=== PATIENT | female | born 1995 | race Caucasian/White ===

== ENCOUNTER 2020-05-26 14:24 | Emergency (ER) | payer SELFPAY ==
--- NOTE | ~2020-05-26 | XR_ITS ---
EXAMINATION: [id number]_CR DATE: 05/26/2020 14:55 INDICATION: Left upper chest injury. Pain. TECHNIQUE: A frontal view of the chest and 3 views of the left ribs were obtained. COMPARISON: None. FINDINGS: The chest demonstrates clear lungs without pneumonia, pleural effusion, or pneumothorax. Th e heart size is normal. IMPRESSION: 1. No rib fracture. Reviewed, dictated and finalized at location A. IMPRESSION: 1. No rib fracture.
[2020-05-26 14:33] VITALS: BP 122/89; PULSE 98; RESP 16; TEMP 36.8; O2SAT 100
[2020-05-26 14:44] VITALS: BP 122/89; PULSE 98; RESP 16; TEMP 36.8; O2SAT 100
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
[2020-05-26] MEDS: KETOROLAC 30 MG/ML VIAL (*BKC) IM (15:05)
== END 2020-05-26 15:25 | disposition home or self-care (01) ==
PROVIDERS: Emergency Provider Nurse Practitioner
DX: R07.89 Other chest pain (principal); F17.200 Nicotine dependence, unspecified, uncomplicated
CPT/HCPCS: 71101; 96372; 99213; G0463; J1885

== ENCOUNTER 2020-11-24 21:26 | Observation (INO) | payer BC, MEDICAID, SELFPAY ==
[2020-11-24 21:42] VITALS: BP 134/86; PULSE 113
[2020-11-24 21:46] VITALS: BP 135/71; PULSE 104
[2020-11-24 22:00] VITALS: BP 126/63; PULSE 97
[2020-11-24 22:05] LABS: Add Urine Microscopic? YES; Appearance Urine Cloudy (Clear); Bacteria Urine Trace /hpf; Bilirubin Urine Negative (Negative); Blood Urine Negative (Negative); Color Urine Yellow (Yellow); Glucose Urine UA Negative (Negative); Ketones Urine 1+ mg/dL (Negative); Leukocyte Esterase Ur 1+ LEU/UL (Negative); Mucus Urine Rare /lpf; Nitrate Urine Negative (Negative); Protein Urine 1+ mg/dL (Negative); RBC Urine 0-2 /hpf (0-2); Specific Grav Ur 1.023 (1.001-1.035); Squamous Epithelial Cell Urine Many /hpf (Few)
[2020-11-24 22:15] VITALS: BP 130/69; PULSE 93
[2020-11-24] MEDS: ONDANSETRON HCL ODT 4 MG TABLET PO (22:25)
[2020-11-24 22:35] VITALS: BMI 24.5
--- NOTE | 2020-11-24 22:35 | LDADM ---
This patient, Cedrick Jorgensen, was admitted to OB Post 115 on 11/24/20 at 21:26. Plans for labor, pain management and were discussed with patient. Patient/family oriented to hospital policies and general routines including ID bracelet, bed and alarms, visiting hours, pain management, procedures, bathroom and other care routines, personal items, smoking policy, room service/diet and guest tray routines, infant security routines, and visiting hours. Patient/Family are encouraged to report perceived risks to care and to ask questions if they do not understand what they are told or what they should do. See OBIX for further documentation.
--- NOTE | 2020-11-24 23:15 | PC.NURSE ---
2210- called Dr. Beckman- walk-in informed of pt admission. pt c/o nausea and vomiting since yesterday. not able to keep fluids/solids down. UA-sent, labs reviewed. order for ODT zofran 4 mg now and will send script to [facility] in [place] for Macrobid 100mg po BID x 7 days for UTI. pt told to f/u with her OB at [facility].
--- NOTE | 2020-11-28 11:05 | PM.OBTRLD ---
OB - Triage/Final Diagnosis Visit Information Comments/Additional reasons for admission: I have assessed the risk for this patient, Cedrick Jorgensen, and determined that she would benefit from observation care. Evaluation Laboratory results: Laboratory Tests 11/24/20 21:53 Urine Color Yellow Urine Appearance Cloudy H Urine pH 6.0 Ur Specific [place] 1.023 Urine Protein 1+ H Urine Glucose (UA) Negative Urine Ketones 1+ H Ur Blood (Man) Negative Urine Nitrate Negative Urine Bilirubin Negative Urine Urobilinogen 2.0 H Leukocyte Esterase Rfl 1+ H Urine RBC 0-2 Urine WBC 4-6 H Ur Squamous Epith Cells Many H Urine Bacteria Trace Urine Mucus Rare Final Diagnosis (1) Nausea and vomiting during : Code(s): O21.9 - Vomiting of , unspecified Status: Acute
== END 2020-11-24 23:11 | disposition home or self-care (01) ==
PROVIDERS: Admitting Provider Obstetrics & Gynecology; Visit Provider Obstetrics & Gynecology
DX: O21.9 Vomiting of pregnancy, unspecified (principal); Z3A.00 Weeks of gestation of pregnancy not specified
CPT/HCPCS: 81001; A9270; G0378; G0379

== ENCOUNTER 2021-02-10 09:37 | Observation (INO) | payer BC, MEDICAID, SELFPAY ==
[2021-02-10] VITALS (16 sets, daily range): BP systolic 101–154; BP diastolic 52–121; PULSE 67–95; BMI 23.2
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
[2021-02-10 10:56] LABS: Basophils Percent Auto 0.2 % (0.2-1.2); Eosinophils Percent Auto 0.2 % (0-4.4); Hematocrit 34.2 % (37.0-47.0); Hemoglobin 10.8 g/dL (12.0-15.0); Immature Granulocyte Absolute 0.05 K/mm3 (0.00-0.031); Immature Granulocyte Percent A 0.5 % (0-0.5); Lymphocytes Percent Auto 17.5 % (18.3-44.2); Mean Corpuscular HGB Conc 31.6 g/dl (32-36); Mean Corpuscular Hemoglobin 27.8 pg (26-34); Mean Corpuscular Volume 87.9 fl (80-100); Mean Platelet Volume 11.2 fl (7.4-10.4); Monocytes Absolute Auto 0.6 K/mm3 (0.1-0.6); Monocytes Percent Auto 6.4 % (2.6-8.5); Neutrophils Absolute Auto 7.3 K/mm3 (1.3-6.7); Neutrophils Percent Auto 75.2 % (45.5-73.1); Platelet Count Result 193 k/mm3 (150-375); Red Blood Count 3.89 M/mm3 (4.2-5.4); Red Cell Distribution Width 13.3 % (11.5-14.5); White Blood Count 9.7 K/mm3 (4.5-10.0)
[2021-02-10 11:07] LABS: Prothrombin Time 13.1 Seconds (11.1-14.7)
[2021-02-10] MEDS: LACTATED RINGERS 1,000 ML 125 ML IV CONT (11:07)
[2021-02-10 11:08] LABS: Partial Thromboplastin Time 26.6 SECONDS (22.3-36.8)
[2021-02-10] MEDS: ACETAMINOPHEN 500 MG TABLET 1000 MG PO (11:12)
[2021-02-10 11:19] LABS: Fibrinogen 152 mg/dl (215-510)
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
== END 2021-02-10 16:30 | disposition home or self-care (01) ==
PROVIDERS: Admitting Provider Obstetrics & Gynecology; Visit Provider Obstetrics & Gynecology
DX: Z04.1 Encounter for examination and observation following transport accident (principal); O26.899 Other specified pregnancy related conditions, unspecified trimester; T14.90XA Injury, unspecified, initial encounter; V89.2XXA Person injured in unspecified motor-vehicle accident, traffic, initial encounter; Z3A.00 Weeks of gestation of pregnancy not specified
CPT/HCPCS: 36415; 76815; 85025; 85384; 85460; 85610; 85730; 86850; 86900; 86901; A9270; G0378; G0379; J7120

== ENCOUNTER 2021-02-20 09:01 | Outpatient (RCR) | payer BC, MEDICAID, SELFPAY ==
[2021-02-07 14:13] VITALS: BP 126/59; PULSE 81
--- NOTE | 2021-02-07 15:05 | PC.NURSE ---
Spoke with Dr. Vasquez. Orders to discharge home.
[2021-02-15 15:30] VITALS: BP 113/69; PULSE 81
--- NOTE | ~2021-02-20 | US_ITS ---
EXAMINATION: US OB BPP wo non-stress DATE: 02/20/2021 10:15 INDICATION: Intrauterine growth restriction. Third trimester. TECHNIQUE: Real-time pelvic ultrasound was performed. COMPARISON: Ultrasound 02/15/2021 FINDINGS: There is a single living fetus in breech presentation. The placenta is anterior. heart rate is 122 beats per minute (bpm). Biophysical profile performed by the technologist: breathing (30 sec sustained breathing in 30 minutes): 2 out of 2 movement (3 gross body movements in 30 minutes): 2 out of 2 tone (one episode of brcbqxt-hhildgfci-icftylv limb movement): 2 out of 2 Amniotic fluid pocket (2 cm): 2 out of 2 Total score: 8 out of 8 IMPRESSION: 1. Single living fetus in breech presentation. 2. Biophysical profile 8 out of 8. Reviewed, dictated and finalized at location A.
--- NOTE | ~2021-02-20 | US_ITS ---
EXAMINATION: US OB BPP wo non-stress DATE: 02/15/2021 12:50 INDICATION: Intrauterine growth restriction. Third trimester. TECHNIQUE: Real-time pelvic ultrasound was performed. COMPARISON: Ultrasound 02/10/2021 FINDINGS: There is a single living fetus in breech presentation. The placenta is anterior. heart rate is 139 beats per minute (bpm). Biophysical profile performed by the technologist: breathing (30 sec sustained breathing in 30 minutes): 2 out of 2 movement (3 gross body movements in 30 minutes): 2 out of 2 tone (one episode of gnirktr-xzpywxkyi-evcjwjz limb movement): 2 out of 2 Amniotic fluid pocket (2 cm): 2 out of 2 Total score: 8 out of 8 IMPRESSION: 1. Single living fetus in breech presentation. 2. Biophysical profile 8 out of 8. Reviewed, dictated and finalized at location A.
--- NOTE | ~2021-02-20 | US_ITS ---
EXAMINATION: US OB BPP wo non-stress, US umbilical doppler DATE: 02/07/2021 14:33 INDICATION: IUGR during third trimester TECHNIQUE: Real-time pelvic ultrasound was performed. The interpreting radiologist was not present fo r the study. COMPARISON: None. FINDINGS: There is a single living fetus in breech presentation. The placenta is anterior/fundal. heart r ate is 127 beats per minute (bpm). The amniotic fluid index is 8.6 cm which is normal (normal range: 8.3 cm to 24.5 cm). Biophysical profile performed by the technologist: breathing (30 sec sustained breathing in 30 minutes): 2 out of 2 movement (3 gross body movements in 30 minutes): 2 out of 2 tone (one episode of uvzghlk-hmexkylac-wgqjtuj limb movement): 2 out of 2 Amniotic fluid pocket (2 cm): 2 out of 2 Total score: 8 out of 8 Umbilical artery pulsed Doppler demonstrates peak systolic to end-diastolic velocity ratios (S/D rati os) of 2.5 near the fetus, 2.5 in the mid cord, and 3.4 near the placenta (5th percentile = 2.1, 95th percentile = 3.5). IMPRESSION: 1. Single living fetus in breech presentation. 2. Biophysical profile 8 out of 8. 3. Normal umbilical artery Dopplers. 4. Normal amniotic fluid index. Reviewed, dictated and finalized at location B. IMPRESSION: 1. Single living fetus in breech presentation. 2. Biophysical profile 8 out of 8. 3. Normal umbilical artery Dopplers. 4. Normal amniotic fluid index.
[2021-02-20 10:23] VITALS: BP 124/76; PULSE 97
== END 2021-02-22 09:55 | disposition home or self-care (01) ==
LOC: ANHOBOP 09:01
PROVIDERS: Visit Provider Obstetrics & Gynecology
DX: O36.5930 Maternal care for other known or suspected poor fetal growth, third trimester, not applicable or unspecified (principal); Z3A.33 33 weeks gestation of pregnancy; Z3A.35 35 weeks gestation of pregnancy
CPT/HCPCS: 59025; 76819; 76820

== ENCOUNTER 2021-02-21 11:15 | Outpatient (CLI) | payer BC, MEDICAID, SELFPAY ==
[2021-02-21 12:00] LABS: Basophils Percent Auto 0.3 % (0.2-1.2); Eosinophils Percent Auto 0.2 % (0-4.4); Hematocrit 35.5 % (37.0-47.0); Immature Granulocyte Absolute 0.03 K/mm3 (0.00-0.031); Immature Granulocyte Percent A 0.3 % (0-0.5); Lymphocytes Absolute Auto 2.17 K/mm3 (0.9-3.2); Lymphocytes Percent Auto 22.1 % (18.3-44.2); Mean Corpuscular Hemoglobin 27.3 pg (26-34); Mean Corpuscular Volume 88.1 fl (80-100); Monocytes Absolute Auto 0.7 K/mm3 (0.1-0.6); Monocytes Percent Auto 7.5 % (2.6-8.5); Neutrophils Absolute Auto 6.8 K/mm3 (1.3-6.7); Neutrophils Percent Auto 69.6 % (45.5-73.1); Platelet Count Result 233 k/mm3 (150-375); Red Blood Count 4.03 M/mm3 (4.2-5.4); Red Cell Distribution Width 13.8 % (11.5-14.5); White Blood Count 9.8 K/mm3 (4.5-10.0)
[2021-02-22 09:25] LABS: Rapid Plasma Reagin Non-Reactive (NonReactive)
== END 2021-02-21 11:16 | disposition home or self-care (01) ==
LOC: ANHLAB 11:18
PROVIDERS: Visit Provider Obstetrics & Gynecology
DX: Z01.818 Encounter for other preprocedural examination (principal)
CPT/HCPCS: 36415; 85025; 86592; 86850; 86900; 86901

== ENCOUNTER 2021-02-22 08:22 | Inpatient (IN) | payer BC, MEDICAID, SELFPAY ==
[2021-02-22] VITALS (60 sets, daily range): BP systolic 109–187; BP diastolic 36–156; PULSE 65–139; RESP 12–19; TEMP 36.2–37.3; O2SAT 83–100; BMI 22.9
--- NOTE | 2021-02-22 08:42 | WPDANESEPPF ---
Anes - Initial Pre Proc Eval Procedure: Operation Date: 02/22/21 10:30 Proposed Procedures p Primary Section - Prem Pulliam MD Date/Time: 02/22/21 08:42 Surgeon: Prem Pulliam MD Pre Op Diagnosis: c/s Patient Data Age: 25 Gender: F Height: Weight: Allergies Allergy/AdvReac Type Severity Reaction Status Date / Time No Known Allergies Allergy Unknown Verified 05/26/20 14:43 Home Medications Medication Instructions Recorded Confirmed Type 1 tablet PO DAILY 02/10/21 02/20/21 History acetaminophen 1,000 mg PO Q6H PRN tablet 02/10/21 02/20/21 Rx ferrous sulfate 325 mg PO DAILY 02/20/21 02/20/21 History Patient hx anesthesia problems: none Family hx anesthesia problems: none PMFSH Past Medical History Medical History (Updated 02/12/21 @ 18:57 by Jacqueline Vasquez DO) Nausea and vomiting during No active medical problems Family History Family History Other No active medical problems Social History Social History (Updated 05/26/20 @ 14:51 by Lorraine Gordon CNP) Smoking status: Current every day smoker Tobacco type: e-cigarettes/vaping Alcohol intake: current Anes - Eval Final PreProcedure Day of Procedure 02/22/21 08:42 Patient weight: normal Heart: regular rate and rhythm Lungs: clear to auscultation and normal air movement Airway: Mallampati scale class II Neurological: alert and oriented Last oral intake: >/= 8 hours ASA classification: II Emergent: no Anesthetic plan: proceed Anesthesia type and monitoring: regional spinal and standard monitoring Informed Consent: The patient's anesthetic plan and its attendant risks and benefits were discussed with the patient/family/POA. Questions were solicited and answers provided to the satisfaction of the patient/family/POA.
[2021-02-22] MEDS: LACTATED RINGERS 250 ML 999 ML IVPB (09:10)
--- NOTE | 2021-02-22 09:35 | LDADM ---
This patient, Cedrick Jorgensen, was admitted to Labor/Delivery/Recovery 118 on 02/22/21 at 08:22. Plans for section, pain management and were discussed with patient. Patient/family oriented to hospital policies and general routines including ID bracelet, bed and alarms, visiting hours, pain management, procedures, bathroom and other care routines, personal items, smoking policy, room service/diet and guest tray routines, security routines, and visiting hours. Patient/Family are encouraged to report perceived risks to care and to ask questions if they do not understand what they are told or what they should do. See OBIX for further documentation.
--- NOTE | 2021-02-22 10:55 | WPDHPUPDATE1 ---
History and Physical Update Update Date/Time: 02/22/21 10:55 History and Physical has been reviewed, including an updated exam of the patient. There are NO changes in the patient's condition. Risks, benefits, and alternatives have been discussed and questions answered. Patient agrees to proceed with procedure.
--- NOTE | 2021-02-22 10:56 | PM.IMHP ---
H&P: HPI History of Present Illness Date/Time: 02/22/21 10:56 25-year-old G1 female at 36 weeks gestation. Have been following for intrauterine growth restriction for the past 4 weeks. Last ultrasound showed no significant interval growth and oligohydramnios. Will therefore be proceeding with delivery. Also found to be breech and unable to consider version due to oligohydramnios. Chief Complaint: Review of Systems Review of Systems: All systems reviewed & are unremarkable except as noted in HPI and below PMFSH Past Medical History Medical History Nausea and vomiting during No active medical problems Family History Family History Other No active medical problems Social History Social History Smoking status: Former smoker Tobacco type: e-cigarettes/vaping Smoking end date: 08/10/20 Alcohol intake: current Substance use: current Gender identity (if verbalized by the patient): Female Spiritual care concerns: No Meds Home Medications and Allergies Home Medications Medication Instructions Recorded Confirmed Type 1 tablet PO DAILY 02/10/21 02/22/21 History acetaminophen 1,000 mg PO Q6H PRN tablet 02/10/21 02/22/21 Rx ferrous sulfate 325 mg PO DAILY 02/20/21 02/22/21 History Allergies Allergy/AdvReac Type Severity Reaction Status Date / Time No Known Allergies Allergy Unknown Verified 05/26/20 14:43 Vital Signs Vital Signs - 24 hr 02/22/21 09:00 Temperature 37.3 C Pulse Rate 93 Blood Pressure 130/66 Exam Const: General: cooperative Resp: Effort & Inspection: normal respiratory effort Cardio: Rate: regular rate Rhythm: regular rhythm GI: Auscultation: normal bowel sounds : Bimanual exam- vagina & uterus: enlarged ( Fundal height 34cm heart tones 140) Assessment and Plan Assessment and plan (1) 36 weeks gestation of : Code(s): Z3A.36 - 36 weeks gestation of Status: Acute (2) growth restriction: Status: Acute (3) Oligohydramnios: Code(s): O41.00X0 - Oligohydramnios, unspecified trimester, not applicable or unspecified Status: Acute (4) Breech presentation: Code(s): O32.1XX0 - Maternal care for breech presentation, not applicable or unspecified Status: Acute Additional Plan proceed with primary section. Have discussed the potential for resuscitation and potential for transfer due to small size is possible pulmonary immaturity. Patient states good understanding and we will proceed.
[2021-02-22] MEDS: ceFAZolin 2 GM/D5W 50 ML 2 GM/50 ML BAG IVPB (11:00)
[2021-02-22] MEDS: KETOROLAC 30 MG/ML VIAL (*BKC) IV PUSH ×2 (11:30→22:00)
--- NOTE | 2021-02-22 11:40 | P.PCNOB_ITS ---
OB - Delivery Note Procedure Procedure: Procedures Operation Date: 02/22/21 10:30 <No data on this case meets the specified criteria> events: Labor < 37 Weeks, Oligohydramnios and Placental Insufficiency Intrapartal events: Other (breech presentation) Route of delivery: Specimen: Yes Quantitative Blood Loss (ml): 650 Anesthesia type: Spinal Disposition: floor Narrative: Patient prepped and draped usual manner for this procedure. Pfannenstiel incision was made and carried down to the fascia which was then extended bilaterally length of the skin incision. Superiorly inferiorly dissected away muscles and and peritoneum was readily entered with the bladder flap developed. Uterus scored with clear fluid noted. Breech was delivered without difficulty cord was clamped and cut passed off operative field and the placenta was delivered manually. Uterus was exteriorized cleared of membranes and clots and closed using 0 Monocryl running interlocking manner good approximation hemostasis noted. Uterus returned to the abdomen gutters cleared of serosanguineous fluid and clots and then the fascia was approximated 0 Vicryl suture subcutaneous tissue was irrigated cauterized and approximated 0 plain suture. Mirlande were used to approximate the skin edges. At this point seizure was considered terminated. [place] Baby Weeks of gestation at delivery: 36 gender: Male Weight (pounds): 4 Weight (ounces): 10 presentation: breech score one minute: 8 score five minutes: 9
[2021-02-22] MEDS: LACTATED RINGERS 1,000 ML 125 ML IV CONT (11:49)
[2021-02-22 12:05] LABS: Amphetamine Screen Urine Negative (Negative); Barbiturate Screen Urine Negative (Negative); Benzodiazepines Screen Urine Negative (Negative); Cannabinoid Screen Urine Positive (Negative); Cocaine Screen Urine Negative (Negative); Methadone Screen Urine Negative (Negative); Opiate Screen Urine Negative (Negative); Phencyclidine Screen Urine Negative (Negative)
[2021-02-22] MEDS: diphenhydrAMINE HCl INJ 50 MG/ML VIAL 12.5 MG IV PUSH (12:23)
[2021-02-22] MEDS: MORPHINE SULFATE (*CRX) 2 MG/ML INJ IV PUSH (13:39)
[2021-02-22] MEDS: OXYTOCIN 30 UNITS/NS 500 ML 30 UNITS/500 ML BAG 125 UNITS IV CONT (14:10)
[2021-02-22] MEDS: METOCLOPRAMIDE HCL INJ 10 MG/2 ML VIAL (15:11)
[2021-02-22] MEDS: HYDROmorphone HCL INJ (*CRX) 1 MG/ML SYR IV PUSH ×2 (16:33→18:53)
--- NOTE | 2021-02-22 16:39 | OBPPTRN ---
1432-Patient transferred to post room #277 via stretcher. Support person present. Oriented to unit, room, information board, rooming in, admission packet and security measures. Patient verbalizes understanding.
[2021-02-22] MEDS: ONDANSETRON INJ 4 MG/2 ML VIAL IV PUSH (18:53)
[2021-02-22] MEDS: DEXTROSE 5%/0.45% SOD CHL 1,000 ML 125 ML IV CONT (18:54)
[2021-02-22] MEDS: METOCLOPRAMIDE HCL INJ 10 MG/2 ML VIAL IV PUSH (22:00)
[2021-02-23 03:10] VITALS: BP 111/62; PULSE 65; RESP 16; TEMP 36.4
[2021-02-23] MEDS: HYDROcodone/acetaminophen (*CRX) 5-325 MG TABLET 1 TAB PO ×5 (04:15→22:18)
[2021-02-23] MEDS: IBUPROFEN 600 MG TABLET PO ×3 (04:15→15:50)
[2021-02-23 04:52] LABS: Basophils Percent Auto 0.2 % (0.2-1.2); Hematocrit 23.7 % (37.0-47.0); Hemoglobin 7.7 g/dL (12.0-15.0); Immature Granulocyte Absolute 0.07 K/mm3 (0.00-0.031); Immature Granulocyte Percent A 0.5 % (0-0.5); Lymphocytes Absolute Auto 1.71 K/mm3 (0.9-3.2); Lymphocytes Percent Auto 13.3 % (18.3-44.2); Mean Corpuscular HGB Conc 32.5 g/dl (32-36); Mean Corpuscular Volume 86.2 fl (80-100); Mean Platelet Volume 11.8 fl (7.4-10.4); Monocytes Percent Auto 7.5 % (2.6-8.5); Neutrophils Absolute Auto 10.1 K/mm3 (1.3-6.7); Neutrophils Percent Auto 78.5 % (45.5-73.1); Platelet Count Result 220 k/mm3 (150-375); Red Blood Count 2.75 M/mm3 (4.2-5.4); Red Cell Distribution Width 13.5 % (11.5-14.5); White Blood Count 12.9 K/mm3 (4.5-10.0)
--- NOTE | 2021-02-23 07:21 | PM.OBPNVD ---
OB - PN: Subj Subjective Date/time seen: 02/23/21 07:21 ambulating voiding tolerating regular without difficulty. Pain is well controlled. Overall feels better and than yesterday. Baby is in room with her and doing well with breast-feeding. OB - PN: Obj Data Labs CBC & Chem 7: 02/23/21 03:55 Labs: Laboratory Results - last 24 hr 02/22/21 02/23/21 11:00 03:55 WBC 12.9 H RBC 2.75 L Hgb 7.7 L D Hct 23.7 L MCV 86.2 MCH 28.0 MCHC 32.5 RDW 13.5 Plt Count 220 MPV 11.8 H Immature Gran % (Auto) 0.5 Neut % (Auto) 78.5 H Lymph % (Auto) 13.3 L [place] % (Auto) 7.5 Eos % (Auto) 0.0 Baso % (Auto) 0.2 Lymph # (Auto) 1.71 [place] # (Auto) 1.0 H Eos # (Auto) 0.0 Baso # (Auto) 0.0 Abs Immat Gran (auto) 0.07 H Absolute Neuts (auto) 10.1 H Absolute Nucleated RBC 0.0 Nucleated RBC % 0.0 Urine Opiates Screen Negative Urine Methadone Screen Negative Ur Barbiturates Screen Negative Ur Phencyclidine Scrn Negative Ur Amphetamine Screen Negative U Benzodiazepines Scrn Negative Urine Cocaine Screen Negative U Cannabinoids Screen Positive A OB - PN A/P Assessment and Plan (1) Acute blood loss as cause of postoperative anemia: Code(s): D62 - Acute posthemorrhagic anemia Status: Acute Assessment and Plan: overall as asymptomatic so we will monitor this. Also recheck blood count morning to assess for stability. Time Spent With Patient Time: Total time spent is greater than 50% in coordination of care (as documented) at patient's floor/unit and/or counseling patient: Exam Narrative: Exam Narrative: Incision clean dry intact. Abdomen with positive bowel sounds soft and nondistended
[2021-02-23 08:45] VITALS: PULSE 94; RESP 18; O2SAT 100
[2021-02-23 08:50] VITALS: BP 117/71; PULSE 94; RESP 18; TEMP 36.9; O2SAT 100
--- NOTE | 2021-02-23 08:53 | WPDANLDPN2 ---
Anes-Prog Note L&D Date/Time: 02/23/21 08:53 Comfortable throughout: section Neuraxial method: spinal Epidural/Spinal procedure site: clean & non-tender Neuro status: Neuro function grossly intact. Cardiovascular status: normal Respiratory status: normal Airway patency: baseline Mental status: baseline Post-Op hydration status: normal Vital Signs: Last Vital Signs Temp 36.4 C 02/23/21 03:10 Pulse 65 02/23/21 03:10 Resp 16 02/23/21 03:10 BP 111/62 02/23/21 03:10 Pulse Ox 98 02/22/21 15:00 Pain score (VAS): 08/20 I/O: Intake & Output 02/22/21 02/23/21 02/23/21 23:59 07:59 15:59 Intake Total 600 Output Total 1200 Balance -600 Post-procedural complaints: none Patient feedback: Patient satisfied with anesthetic care.
--- NOTE | 2021-02-23 08:53 | WPDANLDNPN2 ---
Anes-Prog Note L&D-Neuraxial Date/Time: 02/23/21 08:53 Neuraxial medications: intrathecal PF morphine Opiod-related complaints: none Patient feedback: Patient satisfied with post-operative pain management.
--- NOTE | 2021-02-23 09:15 | PC.NURSE ---
Consult with pt., mother states ICP has ordered infant to be bottle fed the next several feeding due to low blood glucose. Discussed infants may have their own unique set of challenges of establishing . Infants born early often have less stamina and may be sleepier, have more difficulties with latch, suck and swallow and maintaining body temperature. Mother of early infants may have difficulties establishing a good milk supply due to lack of adequate stimulation of supply.
[2021-02-23] MEDS: DOCUSATE SODIUM 100 MG CAPSULE PO ×2 (10:24→17:35)
[2021-02-23] MEDS: MULTIVIT/MIN/PREN/FOL AC/IRON TABLET 1 TAB PO (10:24)
[2021-02-23] MEDS: POLYSACCHARIDE IRON COMPLEX 150 MG CAPSULE PO ×2 (10:25→17:35)
[2021-02-23] MEDS: SIMETHICONE 80 MG TAB.CHEW PO ×3 (10:29→15:50)
--- NOTE | 2021-02-23 11:17 | PCCCNOTE ---
Addendum entered by NORBERTO Martinez 02/23/21 13:25: A exceptional children teacher with [facility] has reviewed and assessed this information; it qualifies for a child welfare referral to offer services/provide support to the involved family. I have also provided pt. with additional resources and encouraged she contact any/all of interest. No further needs indicated at this time. Original Note: Care Coordination Consult: marijuana use during . Mother tested positive for THC. No toxicology on baby. Meconium is pending. Mother confirms THC use during for nausea. She states having informed her DrMiguelito of same. She states having obtained THC from local dispensary. She lives with significant other, Michael Barraza and plans to return to their home when discharged from hospital with baby. She states not having any other children. She denies any previous history with [facility]. She states having all needed items to care for baby at return home. She states that her parents as well as father of baby's parents are supportive. She denies any other substance use. Nursing has no other concerns regarding pt. situation. Reported this to [facility] and determination is pending.
--- NOTE | 2021-02-23 15:05 | PC.NURSE ---
Breast pump provided due to infant/ineffective feeding. Instructions given on breast pump care and usage, pumping schedule, nipple care, and collection and storage of breast milk. Encouraged qkla-qi-nkzk, breast massage and manual expression to stimulate supply. Assessed patient for correct flange size, placement and draw. Patient verbalizes and demonstrates understanding of instructions.
[2021-02-23 18:40] VITALS: BP 114/70; PULSE 84; RESP 16; TEMP 36.6; O2SAT 98
[2021-02-24] MEDS: IBUPROFEN 600 MG TABLET PO ×3 (00:24→13:42)
[2021-02-24 05:15] VITALS: BP 102/61; PULSE 73; RESP 16; TEMP 36.4; O2SAT 95
[2021-02-24] MEDS: HYDROcodone/acetaminophen (*CRX) 5-325 MG TABLET 1 TAB PO ×2 (05:16→13:42)
[2021-02-24 06:06] LABS: Hematocrit 24.9 % (37.0-47.0); Hemoglobin 7.8 g/dL (12.0-15.0); Mean Corpuscular HGB Conc 31.3 g/dl (32-36); Mean Corpuscular Hemoglobin 27.9 pg (26-34); Mean Corpuscular Volume 88.9 fl (80-100); Mean Platelet Volume 11.1 fl (7.4-10.4); Platelet Count Result 230 k/mm3 (150-375); Red Cell Distribution Width 13.7 % (11.5-14.5); White Blood Count 10.1 K/mm3 (4.5-10.0)
[2021-02-24 07:45] VITALS: BP 123/60; PULSE 79; RESP 18; TEMP 36.6; O2SAT 100
[2021-02-24] MEDS: MULTIVIT/MIN/PREN/FOL AC/IRON TABLET 1 TAB PO (08:10)
[2021-02-24] MEDS: DOCUSATE SODIUM 100 MG CAPSULE PO (08:11)
[2021-02-24] MEDS: POLYSACCHARIDE IRON COMPLEX 150 MG CAPSULE PO (08:11)
--- NOTE | 2021-02-24 08:41 | PM.OBDSVD ---
DS: Admitting Diagnosis Admitting Diagnosis Admitting Diagnosis: OB - DS: Summary OB Procedures : None OB Procedures Intrapartum: OB Procedures: : None Peripartum Data Procedures: Procedures Operation Date: 02/22/21 10:30 Actual Procedure Side Surgeon p Section Prem Pulliam MD Time Spent with Patient Time attestation: Total time spent providing and/or coordinating discharge services: DS: Data Data Completed and Pending Pending studies at discharge: Pending at discharge 02/22/21 11:24 Surgical [PTH] Routine Labs on day of discharge: Labs from last 24 hours 02/24/21 05:24 WBC 10.1 H RBC 2.80 L Hgb 7.8 L Hct 24.9 L MCV 88.9 MCH 27.9 MCHC 31.3 L RDW 13.7 Plt Count 230 MPV 11.1 H Discharge Plan Discharge Discharging Clinician: Prem Pulliam Anticipated Discharge Date/Time: 02/24/21 08:41 Patient Disposition: Home, Self-Care Activity: as tolerated Diet: as tolerated Wound Care Instructions: incision open to air Discharge Instructions: office friday for staple removal Patient Instructions: Antibiotic Form, Electronic [facility] (GEN) Stand Alone Forms: General Discharge Information Follow-up/Referrals: Prem Pulliam MD [Physician] - 3 Weeks Discharge Medications: New hydrocodone-acetaminophen 5-325 mg Tablet 1 tablet PO Q6H Qty: 20 RF: 0 ibuprofen 600 mg Tablet 600 mg PO Q6H PRN (Reason: Cramping) Qty: 30 RF: 0 Continued 28-800 mg-mcg Tablet 1 tablet PO DAILY RF: 0 ferrous sulfate 325 mg (65 mg iron) Tablet 325 mg PO DAILY RF: 0 Discontinued acetaminophen 500 mg Tablet 1,000 mg PO Q6H PRN (Reason: headache) RF: 0 Date of admission: 02/22/21 08:22 Primary Care Provider: PHYSICIAN,MEDICAL OFFICE TECHNOLOGIST Admitting Provider: Prem Pulliam Attending physician on admission: Prem Pulliam Condition: Stable
--- NOTE | 2021-02-24 14:00 | PC.NURSE ---
Patient viewed the discharge video Mother & Baby Care, The First Two Weeks . Patient was given the opportunity and encouraged to ask questions. Patient verbalized understanding of information shared and has been given the mother/baby guide for home reference.
[2021-02-27 08:43] VITALS: BP 138/90; PULSE 95; RESP 20; TEMP 37.3; O2SAT 100
== END 2021-02-24 15:57 | disposition home or self-care (01) | DRG 786 ==
LOC: ANHLDR 12:07 → ANHOB2 14:42
PROVIDERS: Admitting Provider Obstetrics & Gynecology; Visit Provider Obstetrics & Gynecology
PROC: 10D00Z1 Extraction of Products of Conception, Low, Open Approach (ICD-10-PCS; CPT 59514; principal; 2021-02-22 10:30)
DX: O41.03X0 Oligohydramnios, third trimester, not applicable or unspecified (principal); O60.14X0 Preterm labor third trimester with preterm delivery third trimester, not applicable or unspecified; Z37.0 Single live birth; Z3A.36 36 weeks gestation of pregnancy; O36.5130 Maternal care for known or suspected placental insufficiency, third trimester, not applicable or unspecified; O32.1XX0 Maternal care for breech presentation, not applicable or unspecified; O36.5930 Maternal care for other known or suspected poor fetal growth, third trimester, not applicable or unspecified
CPT/HCPCS: 36415; 80307; 85025; 85027; 88307; A9270; J0131; J0690; J1170; J1200; J1885; J2270; J2274; J2370; J2405; J2590; J2765; J7120

== ENCOUNTER 2021-10-25 10:02 | Outpatient (CLI) | payer OTHER, SELFPAY ==
[2021-10-25 10:27] LABS: Basophils Percent Auto 0.5 % (0.2-1.2); Eosinophils Percent Auto 0.3 % (0-4.4); Hematocrit 33.6 % (37.0-47.0); Hemoglobin 10.6 g/dL (12.0-15.0); Immature Granulocyte Absolute 0.03 K/mm3 (0.00-0.031); Immature Granulocyte Percent A 0.4 % (0-0.5); Lymphocytes Absolute Auto 1.73 K/mm3 (0.9-3.2); Lymphocytes Percent Auto 21.6 % (18.3-44.2); Mean Corpuscular HGB Conc 31.5 g/dl (32-36); Mean Corpuscular Hemoglobin 27.3 pg (26-34); Mean Corpuscular Volume 86.6 fl (80-100); Mean Platelet Volume 10.7 fl (7.4-10.4); Monocytes Absolute Auto 0.4 K/mm3 (0.1-0.6); Monocytes Percent Auto 5.5 % (2.6-8.5); Neutrophils Absolute Auto 5.7 K/mm3 (1.3-6.7); Neutrophils Percent Auto 71.7 % (45.5-73.1); Platelet Count Result 247 k/mm3 (150-375); Red Blood Count 3.88 M/mm3 (4.2-5.4)
[2021-10-25 11:15] LABS: HIV 1/2 Ab P24 Ag Result Negative (Negative)
[2021-10-25 11:26] LABS: Hepatitis B Surface Antigen Negative (Negative)
[2021-10-25 11:34] LABS: Rubella IgG Antibody > 120.0 IU/ML
[2021-10-26 11:30] LABS: Rapid Plasma Reagin Non-Reactive (NonReactive)
== END 2021-10-25 10:03 | disposition home or self-care (01) ==
LOC: ANHLAB 10:05
PROVIDERS: Visit Provider Obstetrics & Gynecology
DX: N94.89 Other specified conditions associated with female genital organs and menstrual cycle (principal)
CPT/HCPCS: 36415; 84702; 85025; 86592; 86644; 86703; 86747; 86762; 86787; 86850; 86900; 86901; 87086; 87340; G0432

== ENCOUNTER 2022-01-31 14:42 | Observation (INO) | payer OTHER, SELFPAY ==
--- NOTE | 2022-01-31 14:42 | OBADM ---
This patient, Cedrick Jorgensen, admitted to the OB room OB Post 117 for observation. Patient/family oriented to hospital policies and general routines including ID bracelet, bed and alarms, visiting hours, pain management, procedures, bathroom and other care routines, personal items, smoking policy, room service/diet, and visiting hours. Patient/Family are encouraged to report perceived risks to care and to ask questions if they do not understand what they are told or what they should do.
[2022-01-31 15:01] VITALS: BP 138/76; PULSE 89; TEMP 36.8
[2022-01-31 15:11] VITALS: BMI 23.3
[2022-01-31 15:15] VITALS: BP 136/69; PULSE 91
[2022-01-31 15:28] LABS: Add Urine Microscopic? NO; Appearance Urine Clear (Clear); Bilirubin Urine Negative (Negative); Blood Urine Negative (Negative); Color Urine Yellow (Yellow); Glucose Urine UA Negative (Negative); Ketones Urine Negative (Negative); Leukocyte Esterase Ur Negative LEU/UL (Negative); Nitrate Urine Negative (Negative); Protein Urine Negative (Negative); Urobilinogen Urine 0.2 mg/dL (<2.0)
--- NOTE | 2022-01-31 16:37 | PM.OBTRLD ---
OB - Triage/Final Diagnosis Visit Information Reason for evaluation: threatened labor Comments/Additional reasons for admission: I have assessed the risk for this patient, Cedrick Jorgensen, and determined that she would benefit from observation care. Evaluation Laboratory results: Laboratory Tests 01/31/22 15:13 Urine Color Yellow Urine Appearance Clear Urine pH 7.0 Ur Specific [place] 1.010 Urine Protein Negative Urine Glucose (UA) Negative Urine Ketones Negative Ur Blood (Man) Negative Urine Nitrate Negative Urine Bilirubin Negative Urine Urobilinogen 0.2 Leukocyte Esterase Rfl Negative Vital signs: Vital Signs - 24 hr 01/31/22 15:01 01/31/22 15:15 Temperature 98.3 F Pulse Rate 89 91 Blood Pressure 138/76 136/69
== END 2022-01-31 16:12 | disposition home or self-care (01) ==
PROVIDERS: Admitting Provider Obstetrics & Gynecology; Visit Provider Obstetrics & Gynecology
DX: O47.03 False labor before 37 completed weeks of gestation, third trimester (principal); Z3A.30 30 weeks gestation of pregnancy
CPT/HCPCS: 81003; G0378; G0379

== ENCOUNTER 2022-03-08 12:11 | Outpatient (RCR) | payer OTHER, SELFPAY ==
[2022-02-25 15:27] VITALS: BP 119/74; PULSE 83
--- NOTE | 2022-02-25 16:46 | PC.NURSE ---
BPP 03/18
[2022-03-05 13:20] VITALS: BP 121/71; PULSE 116
--- NOTE | ~2022-03-08 | US_ITS ---
EXAMINATION: US OB BPP multi gestation DATE: 03/05/2022 13:16 INDICATION: Small for gestational age 22 , third trimester TECHNIQUE: Real-time ultrasound of the pelvis was performed. COMPARISON: None. FINDINGS: There are two living fetuses. The placenta(s) is/are anterior. The amniotic fluid volume is subjectiv eladia normal. Fetus A: Presentation is vertex. heart rate is 137 beats per minute (bpm). Biophysical profile performed by the technologist: breathing (30 sec sustained breathing in 30 minutes): 2 out of 2 movement (3 gross body movements in 30 minutes): 2 out of 2 tone (one episode of jceztdz-kdvcdcrln-xjhpfrm limb movement): 2 out of 2 Amniotic fluid pocket (2 cm): 2 out of 2 Total score: 8 out of 8 Fetus B: Presentation is breech. heart rate is 123 bpm. Biophysical profile performed by the technologist: breathing (30 sec sustained breathing in 30 minutes): 2 out of 2 movement (3 gross body movements in 30 minutes): 2 out of 2 tone (one episode of wvmzixq-ztvziwhqf-wcrgllg limb movement): 2 out of 2 Amniotic fluid pocket (2 cm): 2 out of 2 Total score: 8 out of 8 IMPRESSION: 1. Living dichorionic, diamniotic twin fetuses. 2. Normal placenta(s). 3. Biophysical profile 8 out of 8 for fetus A and 8 out of 8 for fetus B. Reviewed, dictated and finalized at location B.
--- NOTE | ~2022-03-08 | US_ITS ---
EXAMINATION: US OB BPP multi gestation DATE: 02/25/2022 16:37 INDICATION: Twin gestation. Third trimester. TECHNIQUE: Real-time ultrasound of the pelvis was performed. COMPARISON: ultrasound 02/18/22, 10/08/21 FINDINGS: There are two living fetuses. Previous ultrasounds demonstrated a thick membrane the gesta tional sacs. The placentas are anterior. The amniotic fluid volume is subjectively normal in each sac . Fetus A: Presentation is breech. heart rate is 141 beats per minute (bpm). Biophysical profile performed by the technologist: breathing (30 sec sustained breathing in 30 minutes): 2 out of 2 movement (3 gross body movements in 30 minutes): 2 out of 2 tone (one episode of glrxysc-eajprwpug-edjikep limb movement): 2 out of 2 Amniotic fluid pocket (2 cm): 2 out of 2 Total score: 8 out of 8 Fetus B: Presentation is vertex. heart rate is 127 bpm. Biophysical profile performed by the technologist: breathing (30 sec sustained breathing in 30 minutes): 2 out of 2 movement (3 gross body movements in 30 minutes): 2 out of 2 tone (one episode of rsoyixp-pncqjtpvp-qkaxjua limb movement): 2 out of 2 Amniotic fluid pocket (2 cm): 2 out of 2 Total score: 8 out of 8 IMPRESSION: 1. Living dichorionic, diamniotic twin fetuses. 2. Normal placentas. 3. Biophysical profile 8 out of 8 for fetus A and 8 out of 8 for fetus B. Reviewed, dictated and finalized at location A.
[2022-03-08 12:42] VITALS: BP 135/89; PULSE 83
[2022-03-08 13:19] LABS: Alanine Aminotransferase 54 U/L (6-35); Albumin Level 3.4 g/dL (3.5-5.1); Alkaline Phosphatase 232 U/L (38-126); Anion Gap 5 mmol/L (8-16); Aspartate Amino Transferase 57 U/L (14-36); Bilirubin,Total 0.4 mg/dL (0.2-1.3); Blood Urea Nitrogen 6 mg/dL (7-17); Calcium 8.1 mg/dL (8.4-10.2); Carbon Dioxide 24 mmol/L (22-30); Chloride 107 mmol/L (98-107); Estimated Glomerular Filt Rate > 60; Glucose 97 mg/dL (65-110); Potassium 3.9 mmol/L (3.4-5.0); Sodium 136 mmol/L (137-145)
[2022-03-08 13:24] LABS: Prothrombin Time 13.2 Seconds (11.1-14.7)
[2022-03-08 13:25] LABS: Partial Thromboplastin Time 28.7 SECONDS (22.3-36.8)
--- NOTE | 2022-03-08 14:45 | PC.NURSE ---
Called Dr. Gross with lab results.
[2022-03-14 10:02] LABS: Chenodeoxycholic Acid 4.5 umol/L (< OR = 3.9); Cholic Acid 11.6 umol/L (< OR = 2.8); Deoxycholic Acid 0.7 umol/L (< OR = 2.3); Total Bile Acids 16.8 umol/L (< OR = 8.3)
== END 2022-03-29 15:10 | disposition home or self-care (01) ==
LOC: ANHOBOP 12:11
PROVIDERS: Obstetrics & Gynecology; Visit Provider Obstetrics & Gynecology
DX: O30.043 Twin pregnancy, dichorionic/diamniotic, third trimester (principal); Z3A.33 33 weeks gestation of pregnancy; Z3A.35 35 weeks gestation of pregnancy
CPT/HCPCS: 36415; 59025; 76819; 80053; 82542; 85610; 85730

== ENCOUNTER 2022-03-14 17:10 | Outpatient (CLI) | payer OTHER, SELFPAY ==
[2022-03-14 17:42] LABS: Hemoglobin 11.1 g/dL (12.0-15.0); Mean Corpuscular HGB Conc 31.7 g/dl (32-36); Mean Corpuscular Hemoglobin 27.4 pg (26-34); Mean Corpuscular Volume 86.4 fl (80-100); Mean Platelet Volume 11.1 fl (7.4-10.4); Platelet Count Result 175 k/mm3 (150-375); Red Blood Count 4.05 M/mm3 (4.2-5.4); Red Cell Distribution Width 14.1 % (11.5-14.5); White Blood Count 7.9 K/mm3 (4.5-10.0)
[2022-03-15 11:30] LABS: Rapid Plasma Reagin Non-Reactive (NonReactive)
== END 2022-03-14 18:00 | disposition home or self-care (01) ==
LOC: ANHOBOP 17:15 → ANHLDR 17:16
PROVIDERS: Visit Provider Obstetrics & Gynecology
DX: Z01.818 Encounter for other preprocedural examination (principal)
CPT/HCPCS: 36415; 85027; 86592; 86850; 86900; 86901; 99199

== ENCOUNTER 2022-03-15 04:29 | Inpatient (IN) | payer OTHER, SELFPAY ==
[2022-03-15] VITALS (47 sets, daily range): BP systolic 109–168; BP diastolic 67–109; PULSE 62–127; RESP 13–20; TEMP 36.2–37.2; O2SAT 94–100; BMI 26.2
--- NOTE | 2022-03-15 04:26 | PM.IMHP ---
H&P: HPI History of Present Illness Date/Time: 03/15/22 04:26 26-year-old 001 female presents at 36 weeks for repeat delivery. This been complicated by diamniotic dichorionic twin gestation for which she has had growth scans and testing. Growth scans have shown growth restriction but good growth, and recent diagnosis of cholestasis of which leads to are delivering today at 36 weeks. Also we discussed sterilization and she strongly desires tubal ligation, declines any non permanent nonsurgical measures for contraception. Chief Complaint: Review of Systems Review of Systems: All systems reviewed & are unremarkable except as noted in HPI and below PMFSH Past Medical History Medical History Abnormal glucose tolerance in Diarrhea Nausea and vomiting during No active medical problems Suppression of menstruation Surgical History Surgical History History of 02/22/01 primary c/s--breech History of intestinal surgery 2013 bowel surgery History of wisdom tooth extraction 2019 Family History Family History Other No active medical problems Social History Social History Smoking status: Former smoker Tobacco type: e-cigarettes/vaping Smoking end date: 08/10/20 Alcohol intake: never Substance use: never Substance use type: marijuana Last use: 09/20/2021 Additional living arrangements comments: boyfriend Additional occupation/education comments: stay at home mom Gender identity (if verbalized by the patient): Female Sexual Orientation (if Verbalized by the Patient): Straight or Heterosexual Spiritual care concerns: No Meds Home Medications and Allergies Home Medications Medication Instructions Recorded Confirmed Type vit no.133-ferrous 1 tablet PO DAILY 02/10/21 03/12/22 History fumarate 28 mg-folic acid 800 mcg tablet () sertraline 50 mg tablet (Zoloft) 50 mg PO DAILY #90 tabs 09/25/21 03/12/22 Rx folic acid 1 mg tablet 1 mg PO DAILY #90 tabs 10/25/21 03/12/22 Rx aspirin 81 mg tablet,delayed 81 mg PO DAILY 11/28/21 03/12/22 History release sertraline 50 mg tablet (Zoloft) 50 mg PO DAILY #90 tabs 03/12/22 03/12/22 Rx Allergies Allergy/AdvReac Type Severity Reaction Status Date / Time No Known Allergies Allergy Unknown Verified 03/12/22 17:31 Exam Const: General: cooperative, healthy appearing and comfortable Resp: Effort & Inspection: normal respiratory effort Auscultation: clear to auscultation bilaterally Cardio: Rate: regular rate Rhythm: regular rhythm GI: Inspection: normal to inspection and scar Auscultation: normal bowel sounds : External Female Exam: normal external appearance Bimanual exam- vagina & uterus: enlarged ( heart tone 140 and 150 an a and B respectively) Assessment and Plan Assessment and plan (1) 36 weeks gestation of : Code(s): Z3A.36 - 36 weeks gestation of Status: Acute (2) Dichorionic diamniotic twin gestation: Code(s): O30.049 - Twin , dichorionic/diamniotic, unspecified trimester Status: Acute (3) IUGR (intrauterine growth restriction): Status: Acute (4) Cholestasis during : Code(s): O26.619 - Liver and biliary tract disorders in , unspecified trimester; K83.1 - Obstruction of bile duct Status: Acute (5) Encounter for female sterilization procedure: Code(s): Z30.2 - Encounter for sterilization Status: Acute Plan proceed with repeat low transverse section and bilateral tubal ligation.
--- NOTE | 2022-03-15 04:30 | WPDHPUPDATE1 ---
History and Physical Update Update Date/Time: 03/15/22 04:30 History and Physical has been reviewed, including an updated exam of the patient. There are NO changes in the patient's condition. Risks, benefits, and alternatives have been discussed and questions answered. Patient agrees to proceed with procedure.
[2022-03-15] MEDS: LACTATED RINGERS 1,000 ML 125 ML IV CONT ×2 (05:06→05:41)
--- NOTE | 2022-03-15 05:08 | LDADM ---
This patient, Cedrick Jorgensen, was admitted to Labor/Delivery/Recovery 120 on 03/15/22 at 04:29. Plans for labor, pain management and were discussed with patient. Patient/family oriented to hospital policies and general routines including ID bracelet, bed and alarms, visiting hours, pain management, procedures, bathroom and other care routines, personal items, smoking policy, room service/diet and guest tray routines, security routines, and visiting hours. Patient/Family are encouraged to report perceived risks to care and to ask questions if they do not understand what they are told or what they should do. See OBIX for further documentation.
--- NOTE | 2022-03-15 06:33 | WPDHPUPDATE1 ---
History and Physical Update Update Date/Time: 03/15/22 06:33 After further discussion, will NOT proceed with tubal. History and Physical has been reviewed, including an updated exam of the patient. There are NO changes in the patient's condition. Risks, benefits, and alternatives have been discussed and questions answered. Patient agrees to proceed with procedure.
--- NOTE | 2022-03-15 06:40 | WPDANESEPPF ---
Anes - Initial Pre Proc Eval Procedure: Operation Date: 03/15/22 06:30 Proposed Procedures p Repeat Section with Tubal Ligation - Prem Pulliam MD Date/Time: 03/15/22 06:40 Surgeon: Prem Pulliam MD Pre Op Diagnosis: C/S Patient Data Age: 26 Gender: F Height: 1.55 m Weight: 63 kg Last Vital Signs Temp 36.2 C L 03/15/22 05:50 Pulse 99 03/15/22 04:58 BP 141/95 H 03/15/22 04:58 O2 Del Method Room Air 03/15/22 05:08 Allergies Allergy/AdvReac Type Severity Reaction Status Date / Time No Known Allergies Allergy Unknown Verified 03/12/22 17:31 Home Medications Medication Instructions Recorded Confirmed Type vit no.133-ferrous 1 tablet PO DAILY 02/10/21 03/15/22 History fumarate 28 mg-folic acid 800 mcg tablet () sertraline 50 mg tablet (Zoloft) 50 mg PO DAILY #90 tabs 09/25/21 03/15/22 Rx folic acid 1 mg tablet 1 mg PO DAILY #90 tabs 10/25/21 03/15/22 Rx aspirin 81 mg tablet,delayed 81 mg PO DAILY 11/28/21 03/15/22 History release sertraline 50 mg tablet (Zoloft) 50 mg PO DAILY #90 tabs 03/12/22 03/15/22 Rx Laboratory Tests 03/15/22 06:15 HIV 1&2 Ab/P24 Ag 4thGn Pending Patient hx anesthesia problems: none Family hx anesthesia problems: none Results Review: All pre-operative results and documents have been reviewed as part of the pre-operative evaluation. [facility] Past Medical History Medical History Abnormal glucose tolerance in Diarrhea Nausea and vomiting during No active medical problems Suppression of menstruation Surgical History Surgical History History of 02/22/01 primary c/s--breech History of intestinal surgery 2014 bowel surgery History of wisdom tooth extraction 2020 Family History Family History Other No active medical problems Social History Social History Smoking status: Never smoker Tobacco type: e-cigarettes/vaping Second hand tobacco smoke exposure: No Smoking end date: 08/10/20 Alcohol intake: never Substance use: never Substance use type: marijuana Last use: 09/20/2021 Additional living arrangements comments: boyfriend Additional occupation/education comments: stay at home mom Gender identity (if verbalized by the patient): Female Sexual Orientation (if Verbalized by the Patient): Straight or Heterosexual Spiritual care concerns: No Anes - Eval Final PreProcedure Day of Procedure 03/15/22 06:40 Patient weight: normal Heart: regular rate and rhythm Lungs: clear to auscultation and normal air movement Airway: Mallampati scale class II Neurological: alert and oriented Last oral intake: >/= 8 hours ASA classification: II Emergent: no Anesthetic plan: proceed Anesthesia type and monitoring: regional spinal and standard monitoring Results Review: All pre-operative results and documents have been reviewed as part of the pre-operative evaluation. Informed Consent: The patient's anesthetic plan and its attendant risks and benefits were discussed with the patient/family/POA. Questions were solicited and answers provided to the satisfaction of the patient/family/POA.
[2022-03-15 07:17] LABS: HIV 1/2 Ab P24 Ag Result Negative (Negative)
--- NOTE | 2022-03-15 07:34 | PM.OBPRVD ---
OB - Delivery Note Procedure Procedure: Procedures Operation Date: 03/15/22 06:30 <No data on this case meets the specified criteria> Events: Intrauterine Growth Restriction (IUGR), Previous Delivery and Other (Twin gestation/ cholestasis of ) Route of delivery: Prior to decision for section, [facility] labor guidelines were considered and discussed with the patient and staff. Decision made to proceed with the section.: No Specimen: Yes Quantitative Blood Loss (ml): 400 Anesthesia type: Spinal Disposition: Floor Complications: none Narrative: patient prepped in usual manner for this procedure. Pfannenstiel incision was made and carried down to the fascia was was extended bilaterally the length of the skin incision. Superiorly and inferiorly dissected away from the rectus muscles with peritoneum readily entered and bladder flap developed. Uterus scored with clear fluid noted. Fetus a female was delivered in breech position without difficulty Apgars of 7 and 8 and a weight of 4 lb and 4oz. Fetus B male was delivered in vertex position without difficulty with Apgars of 8 and 9 and weight of 4 lb 14oz. Placenta delivered manually and uterus was exteriorized. Uterus was approximated using 0 Monocryl running interlocking manner with good approximation hemostasis noted. Small amount of superficial oozing was noted and Nina was placed over this area with good hemostasis noted. All subfascial tissue was noted be hemostatic and the fascia was approximated using 0 Vicryl from left angle to midline in the right angle to midline with good hemostasis and approximation noted. Also there was a small area on the right rectus muscle prior to closure of the fascia which was rendered hemostatic using a running interlocking suture of 0 Monocryl. Subcutaneous tissue was approximated 0 plain and kym were then used to approximate the skin edges. Patient was then sent to the recovery room in stable condition. [place] Baby Weeks of gestation at delivery: 36 AMG Delivery Billing Delivery Delivery: Delivery Charge
[2022-03-15] MEDS: OXYTOCIN 30 UNITS/NS 500 ML 30 UNITS/500 ML BAG 125 UNITS IV CONT (07:44)
--- NOTE | 2022-03-15 09:55 | PC.NURSE ---
Patient transferred to post room #277 via stretcher. Support person present. Oriented to unit, room, information board, rooming in, admission packet and security measures. Patient verbalizes understanding.
[2022-03-15] MEDS: KETOROLAC 30 MG/ML VIAL (*BKC) IV PUSH ×2 (11:17→19:47)
[2022-03-15] MEDS: MULTIVIT/MIN/PREN/FOL AC/IRON TABLET 1 TAB PO (12:20)
[2022-03-15] MEDS: DEXTROSE 5%/0.45% SOD CHL 1,000 ML 125 ML IV CONT (12:24)
[2022-03-15] MEDS: HYDROcodone/acetaminophen (*CRX) 5-325 MG TABLET 1 TAB PO (13:37)
[2022-03-15] MEDS: DOCUSATE SODIUM 100 MG CAPSULE PO ×2 (13:37→19:47)
[2022-03-15] MEDS: HYDROcodone/acetaminophen (*CRX) 10-325 MG TABLET 1 TAB PO (19:47)
[2022-03-15] MEDS: SERTRALINE HCL 50 MG TABLET PO (19:48)
[2022-03-16] MEDS: IBUPROFEN 600 MG TABLET PO ×3 (00:11→17:27)
[2022-03-16] MEDS: HYDROcodone/acetaminophen (*CRX) 10-325 MG TABLET 1 TAB PO ×4 (00:11→12:50)
[2022-03-16 04:00] VITALS: BP 125/87; PULSE 64; RESP 16; TEMP 36.6
[2022-03-16] MEDS: SIMETHICONE 80 MG TAB.CHEW PO ×4 (05:17→20:17)
[2022-03-16 06:26] LABS: Basophils Percent Auto 0.3 % (0.2-1.2); Eosinophils Percent Auto 0.5 % (0-4.4); Hematocrit 31.6 % (37.0-47.0); Hemoglobin 9.8 g/dL (12.0-15.0); Immature Granulocyte Absolute 0.03 K/mm3 (0.00-0.031); Immature Granulocyte Percent A 0.5 % (0-0.5); Lymphocytes Absolute Auto 1.47 K/mm3 (0.9-3.2); Lymphocytes Percent Auto 25.4 % (18.3-44.2); Mean Corpuscular Hemoglobin 27.5 pg (26-34); Mean Corpuscular Volume 88.5 fl (80-100); Monocytes Absolute Auto 0.5 K/mm3 (0.1-0.6); Monocytes Percent Auto 7.9 % (2.6-8.5); Neutrophils Absolute Auto 3.8 K/mm3 (1.3-6.7); Neutrophils Percent Auto 65.4 % (45.5-73.1); Platelet Count Result 155 k/mm3 (150-375); Red Blood Count 3.57 M/mm3 (4.2-5.4); Red Cell Distribution Width 14.3 % (11.5-14.5); White Blood Count 5.8 K/mm3 (4.5-10.0)
--- NOTE | 2022-03-16 07:40 | P.PNOB_ITS ---
OB - PN: Subj Subjective Date/time seen: 03/16/22 07:40 26-year-old female 1 day status post repeat low-transverse section. She is ambulating voiding tolerating regular diet and on oral medication. Placido luna feels very well no concerns or questions at this time. Vital signs are stable she is afebrile Abdomen positive bowel sounds soft nontender. Incision clean dry and intact with kym in place. No masses noted Postop day 1 status post repeat low-transverse section Will discharge home tomorrow per patient desire and less any significant issues occur prior to that time. Will have kym removed later next week. OB - PN: Obj Data Labs CBC & Chem 7: 03/16/22 03:59 Labs: Laboratory Results - last 24 hr 03/16/22 03:59 WBC 5.8 RBC 3.57 L Hgb 9.8 L Hct 31.6 L MCV 88.5 MCH 27.5 MCHC 31.0 L RDW 14.3 Plt Count 155 MPV 12.0 H Immature Gran % (Auto) 0.5 Neut % (Auto) 65.4 Lymph % (Auto) 25.4 [place] % (Auto) 7.9 Eos % (Auto) 0.5 Baso % (Auto) 0.3 Lymph # (Auto) 1.47 [place] # (Auto) 0.5 Eos # (Auto) 0.0 Baso # (Auto) 0.0 Abs Immat Gran (auto) 0.03 Absolute Neuts (auto) 3.8 Absolute Nucleated RBC 0.0 Nucleated RBC % 0.0 OB - PN A/P Time Spent With Patient Time: Total time spent is greater than 50% in coordination of care (as documented) at patient's floor/unit and/or counseling patient:
--- NOTE | 2022-03-16 07:42 | PM.OBDSVD ---
DS: Admitting Diagnosis Discharge Date 03/17/2022 Admitting Diagnosis 36 week di/di twin , intrauterine growth restriction, cholestasis of OB - DS: Summary OB Procedures : NST and Ultrasound OB Procedures Intrapartum: OB Procedures: : None Peripartum Data Procedures: Procedures Operation Date: 03/15/22 06:30 Actual Procedure Side Surgeon p Repeat Section Prem Pulliam MD Time Spent with Patient Time attestation: Total time spent providing and/or coordinating discharge services: DS: Data Data Completed and Pending Pending studies at discharge: Pending at discharge 03/15/22 07:58 Surgical [PTH] Routine Labs on day of discharge: Labs from last 24 hours 03/16/22 03:59 WBC 5.8 RBC 3.57 L Hgb 9.8 L Hct 31.6 L MCV 88.5 MCH 27.5 MCHC 31.0 L RDW 14.3 Plt Count 155 MPV 12.0 H Immature Gran % (Auto) 0.5 Neut % (Auto) 65.4 Lymph % (Auto) 25.4 [place] % (Auto) 7.9 Eos % (Auto) 0.5 Baso % (Auto) 0.3 Lymph # (Auto) 1.47 [place] # (Auto) 0.5 Eos # (Auto) 0.0 Baso # (Auto) 0.0 Abs Immat Gran (auto) 0.03 Absolute Neuts (auto) 3.8 Absolute Nucleated RBC 0.0 Nucleated RBC % 0.0 Discharge Plan Discharge Discharging Clinician: Prem Pulliam Patient Disposition: Home, Self-Care Activity: as tolerated Diet: as tolerated Wound Care Instructions: incision open to air Discharge Instructions: Mirlande removed at post hospital visit or in office on Friday next week. Patient Instructions: Antibiotic Form Stand Alone Forms: General Discharge Information Follow-up/Referrals: Prem Pulliam MD [Physician] - 3 Weeks Discharge Medications: New hydrocodone-acetaminophen 5-325 mg Tablet 1 tablet PO Q3H PRN (Reason: Moderate Pain (4-6)) Qty: 30 0RF ibuprofen 600 mg Tablet 600 mg PO Q6H PRN (Reason: Cramping) Qty: 30 0RF Continued sertraline [Zoloft] 50 mg tablet 50 mg PO DAILY Qty: 90 1RF 28-800 mg-mcg Tablet 1 tablet PO DAILY Discontinued folic acid 1 mg tablet 1 mg PO DAILY Qty: 90 3RF aspirin 81 mg tablet,delayed release (DR/EC) 81 mg PO DAILY sertraline [Zoloft] 50 mg tablet 50 mg PO DAILY Qty: 90 1RF Date of admission: 03/15/22 04:29 Primary Care Provider: PHYSICIAN,REGULATORY COMPLIANCE SPECIALIST Admitting Provider: Prem Pulliam Attending physician on admission: Prem Pulliam Condition: Stable
[2022-03-16 08:30] VITALS: PULSE 83; RESP 18; O2SAT 100
[2022-03-16] MEDS: DOCUSATE SODIUM 100 MG CAPSULE PO ×2 (08:30→17:29)
[2022-03-16] MEDS: MULTIVIT/MIN/PREN/FOL AC/IRON TABLET 1 TAB PO (08:30)
[2022-03-16] MEDS: POLYSACCHARIDE IRON COMPLEX 150 MG CAPSULE PO ×2 (08:30→17:29)
--- NOTE | 2022-03-16 09:38 | WPDANLDPN2 ---
Anes-Prog Note L&D Date/Time: 03/16/22 09:38 Comfortable throughout: section Neuraxial method: spinal Epidural/Spinal procedure site: clean & non-tender Neuro status: Neuro function grossly intact. Cardiovascular status: normal Respiratory status: normal Airway patency: baseline Mental status: baseline Post-Op hydration status: normal Vital Signs: Last Vital Signs Temp 36.6 C 03/16/22 04:00 Pulse 64 03/16/22 04:00 Resp 16 03/16/22 04:00 BP 125/87 03/16/22 04:00 Pulse Ox 100 03/15/22 19:30 O2 Del Method Room Air 03/15/22 09:30 Pain score (VAS): 08/20 I/O: Intake & Output 03/15/22 03/16/22 03/16/22 23:59 07:59 15:59 Intake Total 1240 600 Output Total 750 2000 Balance 490 -1400 Post-procedural complaints: none Patient feedback: Patient satisfied with anesthetic care.
--- NOTE | 2022-03-16 09:39 | WPDANLDNPN2 ---
Anes-Prog Note L&D-Neuraxial Date/Time: 03/16/22 09:39 Neuraxial medications: intrathecal PF morphine Opiod-related complaints: none Patient feedback: Patient satisfied with post-operative pain management.
[2022-03-16 11:10] VITALS: BP 128/92; PULSE 83; RESP 18; TEMP 36.6; O2SAT 100
[2022-03-16] MEDS: HYDROcodone/acetaminophen (*CRX) 5-325 MG TABLET 1 TAB PO ×2 (17:28→20:25)
[2022-03-16 20:15] VITALS: BP 143/94; PULSE 62; RESP 18; TEMP 36.7; O2SAT 99
[2022-03-17] MEDS: SIMETHICONE 80 MG TAB.CHEW PO ×4 (00:17→17:53)
[2022-03-17] MEDS: IBUPROFEN 600 MG TABLET PO ×3 (00:17→17:54)
[2022-03-17] MEDS: HYDROcodone/acetaminophen (*CRX) 5-325 MG TABLET 1 TAB PO ×4 (00:18→17:53)
[2022-03-17 07:20] VITALS: BP 134/78; PULSE 63; RESP 18; TEMP 36.8; O2SAT 99
[2022-03-17 10:15] VITALS: PULSE 63; RESP 18; O2SAT 99
[2022-03-17] MEDS: POLYSACCHARIDE IRON COMPLEX 150 MG CAPSULE PO ×2 (10:20→17:54)
[2022-03-17] MEDS: DOCUSATE SODIUM 100 MG CAPSULE PO ×2 (10:20→17:54)
[2022-03-17] MEDS: MULTIVIT/MIN/PREN/FOL AC/IRON TABLET 1 TAB PO (10:20)
[2022-03-18 15:41] VITALS: BP 150/97; PULSE 93; TEMP 36.8
--- NOTE | 2022-03-19 17:46 | PM.OBDSVD ---
DS: Admitting Diagnosis Discharge Date 03/17/22 Admitting Diagnosis OB - DS: Summary OB Procedures : NST OB Procedures Intrapartum: OB Procedures: : None Peripartum Data Procedures: Procedures Operation Date: 03/15/22 06:30 Actual Procedure Side Surgeon p Repeat Section Prem Pulliam MD Time Spent with Patient Time attestation: Total time spent providing and/or coordinating discharge services: DS: Data Data Completed and Pending Pending studies at discharge: Pending at discharge 03/15/22 07:58 Surgical [PTH] Routine Discharge Plan Discharge Consulting providers: Amado Porter ; Jaclyn Sherman Discharging Clinician: Prem Pulliam Patient Disposition: Home, Self-Care Activity: as tolerated Diet: as tolerated Wound Care Instructions: incision open to air Discharge Instructions: Education: Mom and Baby Guide Given to: Mother Follow-Up: Call your delivering provider's office for an appointment to be seen in: 03/20 and in 3 weeks BREAST CARE: * Wear a snug supportive bra. * For engorgement discomfort: Bottle Feeding: * May apply ice packs ABDOMINAL INCISION: (if applicable) * Allow incision to air dry * Do NOT use lotions for powders on your incision * When showering, allow soap and water to run over the incision, but do not wash incision EPISIOTOMY/PERINEAL CARE: * Until bleeding stops, use your lovely bottle after urinating * Change your pad frequently throughout the day * No tub baths until seen by your physician - You may shower ACTIVITY: * Rest as much as possible. * Do not exercise or lift anything heavier than your baby (such as laundry or other children.) * Avoid stairs or driving as much as possible for about 2 weeks and you are no longer taking narcotic pain medicine. * Do not put anything into the vagina. No douching, tampons, or sexual activity until seen by physician. NOTIFY PHYSICIAN IF YOU HAVE ANY QUESTIONS OR IF ANY OF THE FOLLOWING SYMPTOMS OCCUR: * If your incision becomes red, swollen, or more painful than what you have experienced in the hospital. * If your vaginal bleeding becomes foul smelling. * If your vaginal bleeding becomes more heavy than a period or if your bleeding changes from pink to bright red. However, you may pass an occasional walnut-sized clot once or twice for the first week . * If you experience a sharp, shooting pain in your calves. DIET: * Eat regular, well-balanced meals. * Drink plenty of fluids daily. If , drink to thirst. Mirlande removed at post hospital visit or in office on Friday next week. Patient Instructions: (DC) Stand Alone Forms: General Discharge Information Follow-up/Referrals: Prem Pulliam MD [Physician] - 3 Weeks Discharge Medications: New hydrocodone-acetaminophen 5-325 mg Tablet 1 tablet PO Q3H PRN (Reason: Moderate Pain (4-6)) Qty: 30 0RF ibuprofen 600 mg Tablet 600 mg PO Q6H PRN (Reason: Cramping) Qty: 30 0RF Continued sertraline [Zoloft] 50 mg tablet 50 mg PO DAILY Qty: 90 1RF 28-800 mg-mcg Tablet 1 tablet PO DAILY Discontinued folic acid 1 mg tablet 1 mg PO DAILY Qty: 90 3RF aspirin 81 mg tablet,delayed release (DR/EC) 81 mg PO DAILY sertraline [Zoloft] 50 mg tablet 50 mg PO DAILY Qty: 90 1RF Date of admission: 03/15/22 04:29 Primary Care Provider: PHYSICIAN,LEAD NITRATE PROCESSOR Admitting Provider: Prem Pulliam Attending physician on admission: Prem Pulliam Condition: Stable
== END 2022-03-17 17:45 | disposition home or self-care (01) | DRG 540 ==
LOC: ANHLDR 04:32 → ANHOB2 09:59
PROVIDERS: Admitting Provider Obstetrics & Gynecology; Visit Provider Obstetrics & Gynecology
PROC: 10D00Z1 Extraction of Products of Conception, Low, Open Approach (ICD-10-PCS; CPT 59514; principal; 2022-03-15 06:30)
DX: O30.043 Twin pregnancy, dichorionic/diamniotic, third trimester (principal); O34.219 Maternal care for unspecified type scar from previous cesarean delivery; O32.1XX1 Maternal care for breech presentation, fetus 1; O36.5930 Maternal care for other known or suspected poor fetal growth, third trimester, not applicable or unspecified; O60.14X0 Preterm labor third trimester with preterm delivery third trimester, not applicable or unspecified; O26.62 Liver and biliary tract disorders in childbirth; K83.1 Obstruction of bile duct; Z3A.36 36 weeks gestation of pregnancy; Z37.2 Twins, both liveborn; Z79.82 Long term (current) use of aspirin
CPT/HCPCS: 36415; 85025; 86703; 88307; A9270; G0432; J0131; J1885; J2274; J2370; J2405; J2590; J7120

== ENCOUNTER 2022-04-19 18:41 | Emergency (ER) | payer OTHER, SELFPAY ==
[2022-04-19 19:04] VITALS: BP 140/76; PULSE 88; RESP 16; TEMP 37.1; O2SAT 100
--- NOTE | 2022-04-19 19:17 | ED.URI ---
HPI - URI/Sore Throat General Chief Complaint: Upper Respiratory Infection Stated Complaint: sore throat Time Seen by Provider: 04/19/22 19:17 History of Present Illness HPI Narrative: 26-year-old female presented for complaint of sore throat for about 2 days. She is taken Mucinex without relief. Denies sick contacts. She denies any associated headache, nausea, vomiting, cough, shortness of breath, fevers or chills. Related Data Allergies Allergy/AdvReac Type Severity Reaction Status Date / Time No Known Allergies Allergy Unknown Verified 04/19/22 19:12 Review of Systems Review of Systems: CONSTITUTIONAL: Denies body aches, fever, chills, or sweats. EYES: Denies visual changes, redness, or discharge. ENT: Denies rhinorrhea, congestion, or otalgia. CARDIOVASCULAR: Denies chest pain, palpitations, or edema. RESPIRATORY: Denies dyspnea. GASTROINTESTINAL: Denies abdominal pain, nausea, vomiting, or diarrhea. SKIN: Denies rash, itching, or wounds. MUSCULOSKELETAL: Denies back pain, joint pain, or myalgia. NEUROLOGIC: Denies headache PMFSH Past Medical History Medical History Abnormal glucose tolerance in Diarrhea Initiation of Depo Provera Initiation of Depo Provera Nausea and vomiting during No active medical problems Suppression of menstruation Surgical History Surgical History Delivery by section (03/15/22) rpt c/s twins History of 02/22/01 primary c/s--breech History of intestinal surgery 2013 bowel surgery History of wisdom tooth extraction 2019 Family History Family History Other No active medical problems Social History Social History Smoking status: Never smoker Tobacco type: e-cigarettes/vaping Second hand tobacco smoke exposure: No Smoking end date: 08/10/20 Alcohol intake: never Substance use: never Substance use type: marijuana Last use: 09/20/2021 Additional living arrangements comments: boyfriend Additional occupation/education comments: stay at home mom Gender identity (if verbalized by the patient): Female Sexual Orientation (if Verbalized by the Patient): Straight or Heterosexual Spiritual care concerns: No Exam Narrative: GENERAL: well-appearing EYES: conjunctivae clear ENT: Mucous membranes moist. TMs pearly jones with normal light reflex bilaterally; no tragal tenderness. Oropharynx erythematous without edema or lesions. No drooling, no hoarseness, no trismus, uvula midline. No tripod positioning, hot potato voice, or soft palate swelling. NECK: Supple. No lymphadenopathy CHEST: Clear to auscultation, breath sounds equal. HEART: Regular rate and rhythm. No murmur heard. SKIN: Warm, dry, no rash. NEURO: Alert and oriented x3. Course Course Emergency Course: Patient is aware of diagnosis, understands and agrees to treatment plan. Anticipatory guidance given. Patient agrees to follow-up as directed and is aware of reasons to seek care at the emergency department. Portions of this record may have been created with voice recognition software Level of Care: Express Care Visit Vital Signs Vital signs: Vital Signs Temperature 98.7 F 04/19/22 19:04 Pulse Rate 88 04/19/22 19:04 Respiratory Rate 16 04/19/22 19:04 Blood Pressure 140/76 04/19/22 19:04 Pulse Oximetry 100 04/19/22 19:04 Oxygen Delivery Room Air 04/19/22 19:04 Temperature 98.7 F 04/19/22 19:04 Pulse Rate 88 04/19/22 19:04 Respiratory Rate 16 04/19/22 19:04 Blood Pressure 140/76 04/19/22 19:04 Pulse Oximetry 100 04/19/22 19:04 Oxygen Delivery Room Air 04/19/22 19:04 MDM - URI/Sore Throat MDM Narrative Medical decision making narrative: Neg strep result reviewed with ren
== END 2022-04-19 19:40 | disposition home or self-care (01) ==
PROVIDERS: Emergency Provider Nurse Practitioner Family; Referring Provider Emergency Medicine
DX: J02.9 Acute pharyngitis, unspecified (principal)
CPT/HCPCS: 87081; 87880; 99213; G0463

== ENCOUNTER 2022-09-07 03:25 | Emergency (ER) | payer OTHER, SELFPAY ==
[2022-09-07 03:30] VITALS: BP 134/83; PULSE 119; RESP 16; TEMP 36.4; O2SAT 100
[2022-09-07 04:20] LABS: Basophils Percent Auto 0.2 % (0.2-1.2); Eosinophils Absolute Auto 0.1 K/mm3 (0-0.3); Eosinophils Percent Auto 1.1 % (0-4.4); Hematocrit 36.9 % (37.0-47.0); Hemoglobin 11.9 g/dL (12.0-15.0); Immature Granulocyte Absolute 0.03 K/mm3 (0.00-0.031); Immature Granulocyte Percent A 0.3 % (0-0.5); Lymphocytes Absolute Auto 3.18 K/mm3 (0.9-3.2); Lymphocytes Percent Auto 31.5 % (18.3-44.2); Mean Corpuscular HGB Conc 32.2 g/dl (32-36); Mean Corpuscular Hemoglobin 27.2 pg (26-34); Mean Corpuscular Volume 84.4 fl (80-100); Mean Platelet Volume 10.4 fl (7.4-10.4); Monocytes Absolute Auto 0.5 K/mm3 (0.1-0.6); Monocytes Percent Auto 4.8 % (2.6-8.5); Neutrophils Absolute Auto 6.3 K/mm3 (1.3-6.7); Neutrophils Percent Auto 62.1 % (45.5-73.1); Platelet Count Result 242 k/mm3 (150-375); Red Blood Count 4.37 M/mm3 (4.2-5.4); Red Cell Distribution Width 13.5 % (11.5-14.5); White Blood Count 10.1 K/mm3 (4.5-10.0)
[2022-09-07 04:21] LABS: Appearance Urine Clear (Clear); Bilirubin Urine Negative (Negative); Blood Urine 3+ (Negative); Color Urine Yellow (Yellow); Glucose Urine UA Negative (Negative); Ketones Urine Negative (Negative); Leukocyte Esterase Ur Negative LEU/UL (Negative); Nitrate Urine Negative (Negative); Protein Urine Negative (Negative); Specific Grav Ur 1.015 (1.001-1.035); Urobilinogen Urine 0.2 mg/dL (<2.0)
[2022-09-07 04:30] LABS: Alanine Aminotransferase 22 U/L (6-35); Albumin Level 4.1 g/dL (3.5-5.1); Alkaline Phosphatase 49 U/L (38-126); Anion Gap 6 mmol/L (8-16); Aspartate Amino Transferase 25 U/L (14-36); Bilirubin,Total 0.3 mg/dL (0.2-1.3); Blood Urea Nitrogen 10 mg/dL (7-17); Calcium 8.9 mg/dL (8.4-10.2); Carbon Dioxide 27 mmol/L (22-30); Chloride 109 mmol/L (98-107); Estimated Glomerular Filt Rate > 60; Glucose 89 mg/dL (65-110); Lipase 48 U/L (23-300); Potassium 3.5 mmol/L (3.4-5.0); Sodium 142 mmol/L (137-145)
[2022-09-07 04:43] LABS: Add Urine Microscopic? YES; Bacteria Urine Trace /hpf; RBC Urine 0-2 /hpf (0-2); Squamous Epithelial Cell Urine Many /hpf (Few); WBC Urine 0-3 /hpf
[2022-09-07 04:51] VITALS: BP 114/80; PULSE 64; RESP 16; TEMP 36.1; O2SAT 97
--- NOTE | 2022-09-07 05:22 | ED.ABDPAIN ---
HPI - Abdominal Pain General Chief Complaint: Abdominal Pain Stated Complaint: black water stool for 5 months Time Seen by Provider: 09/07/22 03:33 History of Present Illness HPI narrative: Patient is a 27-year-old female who presents ER with diarrhea. Ongoing for 5 months. Reports its black and watery. Has multiple times a day. No lightheadedness or syncope. No gross blood. No known sick contacts. Does not take iron or Pepto-Bismol. She does not take probiotics or fiber. She denies a high-fiber diet. No epigastric pain or heartburn. Related Data Allergies Allergy/AdvReac Type Severity Reaction Status Date / Time No Known Allergies Allergy Unknown Verified 07/10/22 10:58 Review of Systems Review of Systems: All systems reviewed & are unremarkable except as noted in HPI and below Constitutional: Constitutional: Denies chills, Denies fatigue and Denies fever(s) Gastrointestinal: Gastrointestinal: Denies abdominal pain, Reports diarrhea, Denies nausea and Denies vomiting PMFSH Past Medical History Medical History Abnormal glucose tolerance in Diarrhea Initiation of Depo Provera Initiation of Depo Provera Nausea and vomiting during No active medical problems Suppression of menstruation Surveillance for Depo-Provera contraception Surgical History Surgical History Delivery by section (03/15/22) rpt c/s twins History of 02/22/01 primary c/s--breech History of intestinal surgery 2013 bowel surgery History of wisdom tooth extraction 2019 Family History Family History (Updated 07/10/22 @ 10:59 by JULI Nunes) Mother Brain aneurysm Other No active medical problems Social History Social History Smoking status: Never smoker Tobacco type: e-cigarettes/vaping Second hand tobacco smoke exposure: No Smoking end date: 08/10/20 Alcohol intake: never Substance use: never Substance use type: marijuana Last use: 09/20/2021 Living arrangements: other Additional living arrangements comments: boyfriend Occupation/Education: 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 Gender identity (if verbalized by the patient): Female Sexual Orientation (if Verbalized by the Patient): Straight or Heterosexual Spiritual care concerns: No Exam Narrative: GENERAL: Well-appearing, well-nourished, and in no acute distress. HEAD: Normocephalic, atraumatic. ENT: Mucous membranes moist. CHEST: Clear to auscultation. No respiratory distress. HEART: Regular rate and rhythm. Normal peripheral pulses. ABDOMEN: Soft, nontender, nondistended, normal active bowel sounds. Scant stool on digital rectal exam. It is faintly heme occult positive. EXTREMITIES: Normal range of motion. No edema. SKIN: Warm, dry, no rash. NEURO: Alert and oriented x3. PSYCH: Normal mood and affect. Course Course Emergency Course: Discussed results with patient. Recommend outpatient follow-up with PCP and GI. Likely needs an EGD. Will be placed on Protonix 40 mg twice a day should she be developing a gastric ulcer. Vital Signs Vital signs: Vital Signs Temperature 97.6 F 09/07/22 03:30 Pulse Rate 119 H 09/07/22 03:30 Respiratory Rate 16 09/07/22 03:30 Blood Pressure 134/83 09/07/22 03:30 Pulse Oximetry 100 09/07/22 03:30 Oxygen Delivery Room Air 09/07/22 03:30 Temperature 96.9 F L 09/07/22 04:51 Pulse Rate 64 09/07/22 04:51 Respiratory Rate 16 09/07/22 04:51 Blood Pressure 114/80 09/07/22 04:51 Pulse Oximetry 97 09/07/22 04:51 Oxygen Delivery Room Air 09/07/22 03:30 MDM - Abdominal Pain Lab Data 09/07/22 04:13 09/07/22 04:13 Labs: Lab Results 09/07/22 09/07/22 09/07/22 Range/Units 04:13 04:13 04:13 WB
[2022-09-07 06:23] VITALS: BP 132/74; PULSE 71; RESP 16; O2SAT 97
== END 2022-09-07 06:29 | disposition home or self-care (01) ==
PROVIDERS: Emergency Provider Emergency Medicine; PCP Obstetrics & Gynecology
DX: R19.7 Diarrhea, unspecified (principal); R19.5 Other fecal abnormalities; Z87.891 Personal history of nicotine dependence
CPT/HCPCS: 36415; 80053; 81001; 81025; 83690; 85025; 99283

== ENCOUNTER 2023-01-29 13:19 | Emergency (ER) | payer OTHER, SELFPAY ==
[2023-01-29 13:26] VITALS: BP 138/75; PULSE 107; RESP 16; TEMP 37; O2SAT 100
--- NOTE | 2023-01-29 13:43 | ED.BACK ---
HPI - Back Pain/Injury General Chief Complaint: Back Pain/Injury Stated Complaint: Low Back Pain/Left Side Time Seen by Provider: 01/29/23 13:33 Source: patient and RN notes reviewed History of Present Illness HPI Narrative: Patient is a 27 year old female with complaints of left low back pain radiating to the left leg. Patient states that she has had this in the past post . Patient states this started approximately 4 days ago and she has been dragging the left leg due to pain. Patient has taken Tylenol, ibuprofen and Advil. Patient denies any urinary symptoms. No other acute complaints. No acute distress noted. Patient aware of the plan of care. Some parts of this dictation were generated by voice recognition software and may contain typographical and/or grammatical inaccuracies. Related Data Home Medications Medication Instructions Recorded Confirmed quetiapine 25 mg tablet (Seroquel) 25 mg PO HS 01/29/23 01/29/23 Allergies Allergy/AdvReac Type Severity Reaction Status Date / Time No Known Allergies Allergy Unknown Verified 01/29/23 13:29 Review of Systems Review of Systems: CONSTITUTIONAL: Denies fever, chills, or sweats. EYES: Denies visual changes, redness, or discharge. ENT: Denies rhinorrhea, congestion, sore throat, or otalgia. CARDIOVASCULAR: Denies chest pain, palpitations, or edema. RESPIRATORY: Denies cough or dyspnea. GASTROINTESTINAL: Denies abdominal pain, nausea, vomiting, or diarrhea. GENITOURINARY: Denies dysuria or hematuria. SKIN: Denies rash or itching. MUSCULOSKELETAL: Left low back pain radiating to the left leg NEUROLOGIC: Denies headache, numbness, or weakness. All other systems reviewed are negative, except as documented in HPI. [facility] Past Medical History Medical History Abnormal glucose tolerance in Diarrhea Initiation of Depo Provera Initiation of Depo Provera Nausea and vomiting during No active medical problems Suppression of menstruation Surveillance for Depo-Provera contraception Surgical History Surgical History Delivery by section (03/15/22) rpt c/s twins History of 02/22/01 primary c/s--breech History of intestinal surgery 2014 bowel surgery History of wisdom tooth extraction 2019 Family History Family History (Updated 07/10/22 @ 10:59 by JULI Nunes) Mother Brain aneurysm Other No active medical problems Social History Social History Smoking status: Never smoker Tobacco type: e-cigarettes/vaping Second hand tobacco smoke exposure: No Smoking end date: 08/10/20 Alcohol intake: never Substance use: never Substance use type: marijuana Last use: 09/20/2021 Living arrangements: other Additional living arrangements comments: boyfriend Occupation/Education: 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 Gender identity (if verbalized by the patient): Female Sexual Orientation (if Verbalized by the Patient): Straight or Heterosexual Spiritual care concerns: No Comments At the time of my signature, I reviewed and agree with the nursing past medical, surgical, social, and family history. There is no relevant family history pertinent to the patient complaint. Exam Narrative: GENERAL: This is a well-nourished, well-developed patient, in no apparent distress. HEAD: normocephalic, atraumatic. EYES: PERRL. Sclera clear/white. Vision is grossly intact. EARS: External ears normal NOSE: External nose normal with no obvious nasal discharge, nares without redness, no rhinorrhea. THROAT: Mucous membranes moist NECK: Neck supple SKIN: warm, intact with no suspicious lesions or rash, good texture and turgor. NEURO: awake, alert, and oriented to person, place and time. There were no obvious f
== END 2023-01-29 14:07 | disposition home or self-care (01) ==
PROVIDERS: Emergency Provider Nurse Practitioner Family
DX: M54.32 Sciatica, left side (principal); Z87.891 Personal history of nicotine dependence
CPT/HCPCS: 99213; G0463

== ENCOUNTER 2023-02-06 11:29 | Emergency (ER) | payer OTHER, SELFPAY ==
--- NOTE | ~2023-02-06 | XR_ITS ---
Lumbosacral Spine: AP, oblique, and lateral views Clinical History: Pain Findings: The normal lordotic curve is maintained. The vertebral bodies and posterior elements are i ntact. The intervertebral disc spaces are preserved. The sacroiliac joints are normally outlined. Impression: No significant abnormality. Reviewed, dictated and finalized at [facility]. Impression: No significant abnormality.
[2023-02-06 11:31] VITALS: BP 120/95; PULSE 110; RESP 15; TEMP 36.7; O2SAT 100
[2023-02-06] MEDS: KETOROLAC (*BKC) 60 MG/2 ML VIAL IM (12:17)
[2023-02-06] MEDS: methocarbamoL 500 MG TABLET PO (12:18)
--- NOTE | 2023-02-06 12:40 | ED.BACK ---
HPI - Back Pain/Injury General Chief Complaint: Back Pain/Injury Stated Complaint: back pain x2 weeks Time Seen by Provider: 02/06/23 11:38 Source: patient Mode of arrival: ambulatory Limitations: no limitations History of Present Illness HPI Narrative: Patient is a 27-year-old female who presents to the ED with report of left low back pain. Patient reports having pain for the last 2 weeks persistently. Pain is only present in the left lower back and radiates down her posterior left leg. Pain worse with movement. She was seen in urgent care about 1 week ago and diagnosed with sciatica, given cyclobenzaprine and 5 day course of prednisone. Patient states the cyclobenzaprine did not help, so she has not been taking this. She did finish the prednisone. Denies any further relief with Tylenol or ibuprofen. Denies any numbness or tingling, saddle anesthesia, bowel or bladder incontinence, abdominal pain, weakness, dysuria, hematuria. Patient has not taken anything for pain today. Related Data Home Medications Medication Instructions Recorded Confirmed quetiapine 25 mg tablet (Seroquel) 25 mg PO HS 01/29/23 02/04/23 Allergies Allergy/AdvReac Type Severity Reaction Status Date / Time No Known Allergies Allergy Unknown Verified 02/06/23 11:50 Review of Systems Review of Systems: CONSTITUTIONAL: Denies fever, chills, or sweats. CARDIOVASCULAR: Denies chest pain. RESPIRATORY: Denies dyspnea. GASTROINTESTINAL: Denies incontinence, abdominal pain, nausea, vomiting, or diarrhea. GENITOURINARY: Denies incontinence, dysuria or hematuria. MUSCULOSKELETAL: See HPI. NEUROLOGIC: See HPI. All systems reviewed & are unremarkable except as noted in HPI and below PMFSH Past Medical History Medical History Abnormal glucose tolerance in Anxiety and depression rx meds Diarrhea Initiation of Depo Provera Initiation of Depo Provera Nausea and vomiting during No active medical problems Suppression of menstruation Surveillance for Depo-Provera contraception Surgical History Surgical History Delivery by section (03/15/22) rpt c/s twins History of 02/22/01 primary c/s--breech History of intestinal surgery 2014 bowel surgery History of wisdom tooth extraction 2019 Family History Family History (Updated 02/04/23 @ 15:21 by Nicolette Lucio Milad) Mother Brain aneurysm Other No active medical problems Social History Social History Smoking status: Never smoker Tobacco type: e-cigarettes/vaping Second hand tobacco smoke exposure: No Smoking end date: 08/10/20 Alcohol intake: never Substance use: current Substance use type: marijuana Other substance usage details: daily Lack of Transportation: No Lack of Food: Never True Current Housing: I Have Housing Concerned About Future Housing: No Difficulty Paying Gas/Electric Bills: No Difficulty Paying for Meds: No Currently Unemployed: No Education: High School Diploma/GED Difficulty w/ Childcare or Family Care: No Living arrangements: other Additional living arrangements comments: boyfriend/ Engaged Occupation/Education: 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 Gender identity (if verbalized by the patient): Female Sexual Orientation (if Verbalized by the Patient): Straight or Heterosexual Spiritual care concerns: No Exam Narrative: GENERAL: Well appearing, well-nourished, non-toxic, in no acute distress. HEAD: Normocephalic, atraumatic. NECK: Supple. No adenopathy, no masses. RESPIRATORY: Airway patent, respirations nonlabored. Clear to auscultation bilaterally, no rales, rhonchi, wheezing. CARDIOVASCULAR: Regular rate and rhythm without murmurs, rubs, or gallops. Rad
== END 2023-02-06 13:30 | disposition home or self-care (01) ==
PROVIDERS: Emergency Provider Physician Assistant
DX: M54.16 Radiculopathy, lumbar region (principal); S39.012A Strain of muscle, fascia and tendon of lower back, initial encounter; F41.9 Anxiety disorder, unspecified; F32.A Depression, unspecified; Z87.891 Personal history of nicotine dependence; X58.XXXA Exposure to other specified factors, initial encounter
CPT/HCPCS: 72110; 96372; 99283; A9270; J1885

== ENCOUNTER 2023-02-28 19:41 | Emergency (ER) | payer OTHER, SELFPAY ==
--- NOTE | ~2023-02-28 | CT_ITS ---
EXAMINATION: CT IAC/mastoids BI w con DATE: 02/28/2023 21:21 INDICATION: Lump behind left ear TECHNIQUE: Computed tomography (CT) of the temporal bones was performed without intravenous contrast. The dose-length product was 256.49 mGy-cm. COMPARISON: None FINDINGS: 5 mm rounded mildly enhancing nodule deep to the soft tissue marker that is posterior to the left mas toid process, likely representing a small lymph node. There is bilateral anterior and posterior cervi romy lymphadenopathy. No intracranial process in the visualized intracranial spaces. Mild mucosal thic kening in the region of the fossa of Rosenmuller on the left. Mild enlargement of the left palatine t onsil. RIGHT TEMPORAL BONE: Normal LEFT TEMPORAL BONE: There is moderate mucosal thickening in the external auditory canal. Mild mucosal thickening in the m iddle ear space. Minimal opacification of mastoid air cells adjacent to the middle ear space. No osse ous erosion. The ossicles are intact. Thickening of the tympanic membrane. Mucosal thickening extends into the eustachian tube. IMPRESSION: The palpable abnormality likely corresponds to a small lymph node. Left otitis externa and otitis media. Minimal left mastoid opacification may represent reactive effus ion or mastoiditis. Bilateral anterior and posterior cervical chain lymphadenopathy. Reviewed, dictated and finalized at [facility]. IMPRESSION: The palpable abnormality likely corresponds to a small lymph node. Left otitis externa and otitis media. Minimal left mastoid opacification may re present reactive effusion or mastoiditis. Bilateral anterior and posterior cervical chain lymphadenopathy.
[2023-02-28 19:42] VITALS: BP 149/73; PULSE 107; RESP 16; TEMP 36.5; O2SAT 100
[2023-02-28 19:50] VITALS: TEMP 36.7
[2023-02-28 20:50] LABS: Basophils Percent Auto 0.5 % (0.2-1.2); Eosinophils Percent Auto 0.3 % (0-4.4); Hematocrit 40.4 % (37.0-47.0); Hemoglobin 12.9 g/dL (12.0-15.0); Immature Granulocyte Absolute 0.02 K/mm3 (0.00-0.031); Immature Granulocyte Percent A 0.2 % (0-0.5); Lymphocytes Absolute Auto 1.86 K/mm3 (0.9-3.2); Lymphocytes Percent Auto 21.1 % (18.3-44.2); Mean Corpuscular HGB Conc 31.9 g/dl (32-36); Mean Corpuscular Hemoglobin 27.4 pg (26-34); Mean Platelet Volume 10.1 fl (7.4-10.4); Monocytes Absolute Auto 0.5 K/mm3 (0.1-0.6); Neutrophils Absolute Auto 6.3 K/mm3 (1.3-6.7); Neutrophils Percent Auto 71.9 % (45.5-73.1); Platelet Count Result 283 k/mm3 (150-375); Red Cell Distribution Width 13.2 % (11.5-14.5); White Blood Count 8.8 K/mm3 (4.5-10.0)
[2023-02-28 21:01] LABS: Anion Gap 8 mmol/L (8-16); Blood Urea Nitrogen 11 mg/dL (7-17); Calcium 9.3 mg/dL (8.4-10.2); Carbon Dioxide 28 mmol/L (22-30); Chloride 104 mmol/L (98-107); Estimated CRCL calculation 92 ml/min; Estimated Glomerular Filt Rate > 60; Glucose 106 mg/dL (65-110); Potassium 3.4 mmol/L (3.4-5.0); Sodium 140 mmol/L (137-145)
[2023-02-28] MEDS: HYDROcodone/acetaminophen (*CRX) 5-325 MG TABLET 1 TAB PO (21:03)
--- NOTE | 2023-02-28 21:11 | ED.EAR ---
HPI - Ear Problem General Chief complaint: Ear Stated complaint: Left ear pain, sent by pcp for CT Time Seen by Provider: 02/28/23 20:02 History of Present Illness HPI Narrative: Patient is a 27-year-old female who presents ER with pain behind her left ear. Patient was diagnosed with otitis media 2 weeks ago. She took her antibiotics and finished them today. She still has pain in the ear with muffled hearing. No drainage. She has developed a lump behind her left ear that is tender to touch. Her PCP sent her to [facility] to have a CT scan of the mastoids. It was a 5-hour wait and so patient left something here. She has no fevers or chills or sweats. No sinus congestion or sore throat or cough. No alleviating factors for her pain. She has had watery drainage from the ear. Related Data Home Medications Medication Instructions Recorded Confirmed quetiapine 25 mg tablet (Seroquel) 25 mg PO HS 01/29/23 02/04/23 Allergies Allergy/AdvReac Type Severity Reaction Status Date / Time No Known Allergies Allergy Unknown Verified 02/06/23 11:50 Review of Systems Review of Systems: All systems reviewed & are unremarkable except as noted in HPI and below Constitutional: Constitutional: Denies chills, Denies fatigue and Denies fever(s) ENT: Denies nasal congestion and Denies sore throat Comments: Left ear pain Cardiovascular: Cardiovascular: Denies chest pain and Denies rapid heart rate Respiratory: Respiratory: Denies cough, Denies dyspnea and Denies wheezing PMFSH Past Medical History Medical History Abnormal glucose tolerance in Anxiety and depression rx meds Diarrhea Initiation of Depo Provera Initiation of Depo Provera Nausea and vomiting during No active medical problems Suppression of menstruation Surveillance for Depo-Provera contraception Surgical History Surgical History Delivery by section (03/15/22) rpt c/s twins History of 02/22/01 primary c/s--breech History of intestinal surgery 2013 bowel surgery History of wisdom tooth extraction 2019 Family History Family History (Updated 02/04/23 @ 15:21 by Nicolette Lucio Milad) Mother Brain aneurysm Other No active medical problems Social History Social History Smoking status: Never smoker Tobacco type: e-cigarettes/vaping Second hand tobacco smoke exposure: No Smoking end date: 08/10/20 Alcohol intake: never Substance use: current Substance use type: marijuana Other substance usage details: daily Lack of Transportation: No Lack of Food: Never True Current Housing: I Have Housing Concerned About Future Housing: No Difficulty Paying Gas/Electric Bills: No Difficulty Paying for Meds: No Currently Unemployed: No Education: High School Diploma/GED Difficulty w/ Childcare or Family Care: No Living arrangements: other Additional living arrangements comments: boyfriend/ Engaged Occupation/Education: 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 Gender identity (if verbalized by the patient): Female Sexual Orientation (if Verbalized by the Patient): Straight or Heterosexual Spiritual care concerns: No Exam Narrative: GENERAL: Well-appearing, well-nourished, and in no acute distress. HEAD: Normocephalic, atraumatic. EYES: PERRL and EOMI. ENT: Mucous membranes moist. Left tympanic membrane erythematous and bulging. Ear canal is slightly inflamed. There is tender posterior auricular lymphadenopathy on the ear. No swelling of the mastoid or significant tenderness. Normal right tympanic membrane. Left ear tender to manipulation. NECK: Supple. CHEST: Clear to auscultation. No respiratory distress. HEART: Regular rate and rhythm. Normal
== END 2023-02-28 22:35 | disposition home or self-care (01) ==
LOC: ANHED 20:15
PROVIDERS: Emergency Provider Emergency Medicine
DX: H60.92 Unspecified otitis externa, left ear (principal); H66.92 Otitis media, unspecified, left ear; F41.9 Anxiety disorder, unspecified; F32.A Depression, unspecified; Z87.891 Personal history of nicotine dependence
CPT/HCPCS: 36415; 70481; 80048; 85025; 99284; A9270; Q9967

== ENCOUNTER 2023-03-13 02:27 | Day surgery (SDC) | payer OTHER, SELFPAY ==
--- NOTE | 2023-03-06 14:46 | SUR.PREOP ---
Report to the Outpatient Waiting Room, entrance under the green pavilion located off [facility], at time 0630 on date 03/13/2023. Planned Procedure Time: 0830. Time changes happen often and if your time is changed the preop area will call you the afternoon before. - You and your visitor will be asked to self-screen and do not enter if you have any COVID symptoms. - A mask is optional within the hospital at this time. Patients may have clear liquids (water, carbonated beverages, clear teas, apple juice) until 3 hours prior to surgery with a maximum of 20 ounces- 0530. - No food from midnight until time of surgery - Infants may have breast milk until 4 hours before surgery, infant formula 6 hours prior to surgery. - Children will be allowed to drink immediately following surgery. If applicable, please bring a bottle or sippy cup to assist with drinking. Juice, water, soda, and popsicles are readily available. For infants on formula, please bring formula the day of surgery. Pacifiers are allowed. Take the following medications with a SIP of water the morning of surgery: N/A DO NOT STOP ANY OF YOUR OTHER PRESCRIPTION MEDICATIONS PRIOR TO SURGERY ?EXCEPT THE FOLLOWING Medications to discontinue per physician N/A Please no make-up, nail togolese, hairspray, perfume, deodorant, or body powder the day of surgery. No jewelry (including any body piercings) or valuables the day of surgery, leave them at home. Please take a shower or bath the night before, or the morning of, surgery with an antibacterial soap. Wear comfortable, loose fitting clothing. Children are encouraged to wear pajamas. - Jewelry must be removed prior to entering the operating room. Rings and piercings that are not removed may be cut off. - The hospital will not accept responsibility for valuables. - Please leave all valuables, including medications, at home the day of surgery. If you are going home after surgery, a licensed taxi truck driver must drive you home. - NO public transportation without another adult if you receive anesthesia. - We recommend that an adult stay with you for 24 hours following discharge. - We also recommend that you do not drive, make important decision, drink alcoholic beverages, or take any drugs that were not prescribed by your health care provider for at least 24 hours after your discharge time. For Pediatric surgeries, we recommend two adults accompany the child home. Follow any additional instructions given to you from your surgeon. If you or anyone in your household have experienced Covid symptoms in the past week, please notify your surgeon or the nurse liaison at the phone number below for possible testing. Telephone instructions given to ____patient- Cedrick and asked if any additional questions and then verbalized understanding. Patient advised to call surgeon office or pre surgery nurse liaison [phone] if any additional questions.
--- NOTE | 2023-03-11 14:43 | PM.IMHP ---
H&P: HPI History of Present Illness Date/Time: 03/11/23 14:43 27-year-old 2 para 2003 female presents for tubal ligation. We have discussed the permanence failure rate increased risk of ectopic and potential regret. Patient states good understanding and strongly desires to proceed with bilateral salpingectomy. Of note in her past she has also had a laparoscopic bowel resection which will increased risk of intraoperative complications and this also has been discussed with the patient, as well as section x2. Chief Complaint: Undesired fertility Review of Systems Review of Systems: All systems reviewed & are unremarkable except as noted in HPI and below PMFSH Past Medical History Medical History (Updated 03/11/23 @ 14:48 by rPem Pulliam MD) Abnormal glucose tolerance in Anxiety and depression rx meds Diarrhea Encounter for female sterilization procedure Initiation of Depo Provera Initiation of Depo Provera Nausea and vomiting during No active medical problems Suppression of menstruation Surveillance for Depo-Provera contraception Surgical History Surgical History (Updated 03/11/23 @ 14:47 by Prem Pulliam MD) Delivery by section (03/15/22) rpt c/s twins History of 02/22/01 primary c/s--breech History of intestinal surgery 2013 bowel surgery History of wisdom tooth extraction 2019 Family History Family History Mother Brain aneurysm Other No active medical problems Social History Social History Smoking status: Former smoker Tobacco type: e-cigarettes/vaping Second hand tobacco smoke exposure: No Smoking end date: 12/09/22 Alcohol intake: current Alcohol use details: one drink every couple of months Substance use: current Substance use type: marijuana Other substance usage details: Marijuana twice daily Lack of Transportation: No Lack of Food: Never True Current Housing: I Have Housing Concerned About Future Housing: No Difficulty Paying Gas/Electric Bills: No Difficulty Paying for Meds: No Currently Unemployed: No Education: High School Diploma/GED Difficulty w/ Childcare or Family Care: No Living arrangements: with family Additional living arrangements comments: boyfriend/ Engaged Occupation/Education: 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 Gender identity (if verbalized by the patient): Female Sexual Orientation (if Verbalized by the Patient): Straight or Heterosexual Spiritual care concerns: No Meds Home Medications and Allergies Home Medications Medication Instructions Recorded Confirmed Type sertraline 100 mg tablet (Zoloft) 100 mg PO DAILY #90 tabs 07/18/22 03/06/23 Rx quetiapine 25 mg tablet (Seroquel) 25 mg PO HS 01/29/23 03/06/23 History cefdinir 300 mg capsule 300 mg PO Q12H #14 caps 02/28/23 03/06/23 Rx ofloxacin 0.3 % ear drops 10 drp LEFT EAR DAILY 7 days #5 mL 02/28/23 03/06/23 Rx Allergies Allergy/AdvReac Type Severity Reaction Status Date / Time No Known Allergies Allergy Unknown Verified 03/06/23 14:17 Exam Const: General: cooperative, healthy appearing and comfortable Resp: Effort & Inspection: normal respiratory effort Auscultation: clear to auscultation bilaterally Cardio: Rate: regular rate Rhythm: regular rhythm GI: Inspection: normal to inspection Auscultation: normal bowel sounds : External Female Exam: normal external appearance Speculum Exam - Vagina: normal appearance of the vagina Speculum Exam - Cervix: normal appearance of the cervix Bimanual exam- vagina & uterus: normal bimanual exam Bimanual Exam- Adnexa, other: normal adnexae Assessment and Plan Assessment and plan (1) Encounter for female sterilization procedure: Code(s): Z30.2 - Encounter for sterilization
--- NOTE | 2023-03-12 14:27 | WPDANESEPPF ---
Anes - Initial Pre Proc Eval Procedure: Operation Date: 03/13/23 08:30 Proposed Procedures p Laparoscopic Bilateral Salpingectomy - Prem Pulliam MD Date/Time: 03/12/23 14:27 Surgeon: Prem Pulliam MD Pre Op Diagnosis: Desires Sterilization Patient Data Age: 27 Gender: F Height: 1.55 m Weight: 47.95 kg Allergies Allergy/AdvReac Type Severity Reaction Status Date / Time No Known Allergies Allergy Unknown Verified 03/13/23 07:33 Home Medications Medication Instructions Recorded Confirmed Type sertraline 100 mg tablet (Zoloft) 100 mg PO DAILY #90 tabs 07/18/22 03/13/23 Rx quetiapine 25 mg tablet (Seroquel) 25 mg PO HS 01/29/23 03/06/23 History cefdinir 300 mg capsule 300 mg PO Q12H #14 caps 02/28/23 03/06/23 Rx Patient hx anesthesia problems: none Family hx anesthesia problems: none Results Review: All pre-operative results and documents have been reviewed as part of the pre-operative evaluation. [facility] Past Medical History Medical History (Updated 03/12/23 @ 14:28 by Ramana King DO) Abnormal glucose tolerance in Anxiety and depression rx meds Bipolar disorder Diarrhea Encounter for female sterilization procedure Initiation of Depo Provera Initiation of Depo Provera Nausea and vomiting during No active medical problems Suppression of menstruation Surveillance for Depo-Provera contraception Surgical History Surgical History (Updated 03/12/23 @ 14:28 by Ramana King DO) Delivery by section (03/15/22) rpt c/s twins History of appendectomy History of 02/22/01 primary c/s--breech History of intestinal surgery 2013 bowel surgery History of wisdom tooth extraction 2019 Family History Family History Mother Brain aneurysm Other No active medical problems Social History Social History Smoking status: Former smoker Tobacco type: e-cigarettes/vaping Second hand tobacco smoke exposure: No Smoking end date: 12/09/22 Alcohol intake: current Alcohol use details: one drink every couple of months Substance use: current Substance use type: marijuana Other substance usage details: Marijuana twice daily Lack of Transportation: No Lack of Food: Never True Current Housing: I Have Housing Concerned About Future Housing: No Difficulty Paying Gas/Electric Bills: No Difficulty Paying for Meds: No Currently Unemployed: No Education: High School Diploma/GED Difficulty w/ Childcare or Family Care: No Living arrangements: with family Additional living arrangements comments: boyfriend/ Engaged Occupation/Education: 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 Gender identity (if verbalized by the patient): Female Sexual Orientation (if Verbalized by the Patient): Straight or Heterosexual Spiritual care concerns: No Anes - Eval Final PreProcedure Day of Procedure 03/12/23 14:27 Patient weight: normal Heart: regular rate and rhythm Lungs: clear to auscultation Airway: Mallampati scale class II Neurological: alert and oriented Last oral intake: >/= 8 hours ASA classification: III Emergent: no Anesthetic plan: proceed Anesthesia type and monitoring: general ETT and standard monitoring Results Review: All pre-operative results and documents have been reviewed as part of the pre-operative evaluation. Informed Consent: The patient's anesthetic plan and its attendant risks and benefits were discussed with the patient/family/POA. Questions were solicited and answers provided to the satisfaction of the patient/family/POA.
[2023-03-13] VITALS (9 sets, daily range): BP systolic 107–128; BP diastolic 52–79; PULSE 72–110; RESP 12–23; TEMP 36.6–36.7; O2SAT 96–100
[2023-03-13] MEDS: ACETAMINOPHEN 500 MG TABLET 1000 MG PO (07:42)
[2023-03-13] MEDS: LACTATED RINGERS 1,000 ML 30 ML IV CONT ×2 (07:45→09:24)
[2023-03-13] MEDS: KETOROLAC 15 MG/ML VIAL (*BKC) IV PUSH (07:50)
--- NOTE | 2023-03-13 08:29 | WPDHPUPDATE1 ---
History and Physical Update Update Date/Time: 03/13/23 08:29 History and Physical has been reviewed, including an updated exam of the patient. There are NO changes in the patient's condition. Risks, benefits, and alternatives have been discussed and questions answered. Patient agrees to proceed with procedure.
--- NOTE | 2023-03-13 09:15 | W.PM.PROC2 ---
Procedure Note - Detailed Date of Procedure 03/13/23 Pre-op Diagnosis Desires Sterilization Post-op Diagnosis Same Procedure Performed Laparoscopic bilateral salpingectomy Surgeon Prem Pulliam MD Anesthesia General Findings Small adhesion of the uterus to the anterior abdominal wall the area of previous C-sections. Otherwise tubes noted without abnormality, left tube small paratubal cyst. Description of Procedure Patient prepped draped. Cervical instruments were placed for uterine mobility throughout case. Abdominal trocar sites marked placed under direct visualization. Findings noted as above mesial salpinx bilaterally cauterized and cut tubes difficulty. Gas was allowed to escape trocars removed incisions approximated using. Patient was sent to recovery room in stable condition Estimated Blood Loss 20 Drains No Packing No Pathology Yes Complications No immediate complications Condition Stable Disposition PACU [facility] Billing Surgery - Charge Forward: Surgery Billing
[2023-03-13] MEDS: fentaNYL CITRATE INJ (*CRX) 100 MCG/2 ML VIAL 25 MCG IV PUSH ×3 (10:17→10:38)
[2023-03-13] MEDS: ONDANSETRON INJ 4 MG/2 ML VIAL IV PUSH (10:20)
[2023-03-13] MEDS: SCOPOLAMINE 1.5 MG PATCH TRANSDERM (11:10)
[2023-03-13] MEDS: diphenhydrAMINE HCl INJ 50 MG/ML VIAL 25 MG IV PUSH (11:10)
== END 2023-03-13 11:45 | disposition home or self-care (01) ==
PROVIDERS: Visit Provider Obstetrics & Gynecology
PROC: (CPT 49320; principal; 2023-03-13 08:30)
DX: Z30.2 Encounter for sterilization (principal); F41.8 Other specified anxiety disorders; F31.9 Bipolar disorder, unspecified; F17.290 Nicotine dependence, other tobacco product, uncomplicated; F12.90 Cannabis use, unspecified, uncomplicated; Z98.891 History of uterine scar from previous surgery; Z98.890 Other specified postprocedural states
CPT/HCPCS: 58661; 88302; A9270; J1100; J1200; J1885; J2250; J2405; J2704; J3010; J7120

== ENCOUNTER 2023-06-14 14:17 | Emergency (ER) | payer OTHER, SELFPAY ==
--- NOTE | 2023-06-14 14:27 | ED.WOUNDLAC ---
HPI - Wound/Laceration General Chief Complaint: Wound/Laceration Stated Complaint: Left Thumb Injury History of Present Illness HPI narrative: PATIENT PRESENTS WITH A SUPERFICIAL LACERATION TO THE BASE OF HER LEFT THUMB BLEEDING CONTROLLED PATIENT STATES SHE WAS TRYING TO OPEN SOMETHING WITH A KNIFE THE KNIFE SLIPPED. NORMAL RANGE OF MOTION OF HER HAND. Related Data Home Medications Medication Instructions Recorded Confirmed quetiapine 25 mg tablet (Seroquel) 25 mg PO HS 01/29/23 03/28/23 Allergies Allergy/AdvReac Type Severity Reaction Status Date / Time No Known Allergies Allergy Unknown Verified 03/28/23 11:09 Review of Systems Review of Systems: CONSTITUTIONAL: DENIES FEVER, CHILLS, OR SWEATS. EYES: DENIES VISUAL CHANGES, REDNESS, OR DISCHARGE. ENT: DENIES RHINORRHEA, CONGESTION, SORE THROAT, OR OTALGIA. CARDIOVASCULAR: DENIES CHEST PAIN, PALPITATIONS, OR EDEMA. RESPIRATORY: DENIES COUGH OR DYSPNEA. GASTROINTESTINAL: DENIES ABDOMINAL PAIN, NAUSEA, VOMITING, OR DIARRHEA. GENITOURINARY: DENIES DYSURIA OR HEMATURIA. SKIN: DENIES RASH OR ITCHING. MUSCULOSKELETAL: DENIES BACK PAIN, JOINT PAIN, OR MYALGIA. NEUROLOGIC: DENIES HEADACHE, NUMBNESS, OR WEAKNESS. PSYCHIATRIC: DENIES ANXIETY OR DEPRESSION. [facility] Past Medical History Medical History Abnormal glucose tolerance in Anxiety and depression rx meds Bipolar disorder Diarrhea Encounter for female sterilization procedure Initiation of Depo Provera Initiation of Depo Provera Nausea and vomiting during No active medical problems Suppression of menstruation Surveillance for Depo-Provera contraception Surgical History Surgical History Delivery by section (03/15/22) rpt c/s twins H/O bilateral salpingectomy (03/13/23) Laparoscopic bilateral salpingectomy History of appendectomy History of 02/22/01 primary c/s--breech History of intestinal surgery 2014 bowel surgery History of wisdom tooth extraction 2019 Family History Family History Mother Brain aneurysm Other No active medical problems Social History Social History Smoking status: Former smoker Tobacco type: e-cigarettes/vaping Second hand tobacco smoke exposure: No Smoking end date: 12/09/22 Alcohol intake: current Alcohol use details: one drink every couple of months Substance use: current Substance use type: marijuana Other substance usage details: Marijuana twice daily Lack of Transportation: No Lack of Food: Never True Current Housing: I Have Housing Concerned About Future Housing: No Difficulty Paying Gas/Electric Bills: No Difficulty Paying for Meds: No Currently Unemployed: No Education: High School Diploma/GED Difficulty w/ Childcare or Family Care: No Living arrangements: with family Additional living arrangements comments: boyfriend/ Engaged Occupation/Education: 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 Gender identity (if verbalized by the patient): Female Sexual Orientation (if Verbalized by the Patient): Straight or Heterosexual Spiritual care concerns: No Comments AT TIME OF SIGNATURE, AGREE WITH NURSING PAST MEDICAL, SURGICAL, SOCIAL AND FAMILY HISTORY. THERE IS NO RELEVANT FAMILY HISTORY PERTINENT TO THE PRESENTING COMPLAINT Exam Narrative: GENERAL: WELL-APPEARING, WELL-NOURISHED, AND IN NO ACUTE DISTRESS. HEAD: NORMOCEPHALIC, ATRAUMATIC. EYES: PERRLA AND EOMI. ENT: NARES CLEAR, NO RHINORRHEA OR EPISTAXIS. MUCOUS MEMBRANES MOIST. NECK: SUPPLE. CHEST: CLEAR TO AUSCULTATION. NO RESPIRATORY DISTRESS. HEART: REGULAR RATE AND RHYTHM. NO MURMUR HEARD. NORMAL PERIPHERAL PULSES. ABDOMEN: SOFT, NONTENDER, NONDISTENDED, NORMAL ACT
[2023-06-14 14:46] VITALS: BP 123/72; PULSE 105; RESP 16; TEMP 36.8; O2SAT 98
== END 2023-06-14 14:44 | disposition home or self-care (01) ==
PROVIDERS: Emergency Provider Nurse Practitioner Family
DX: S61.012A Laceration without foreign body of left thumb without damage to nail, initial encounter (principal); Z87.891 Personal history of nicotine dependence; W26.0XXA Contact with knife, initial encounter
CPT/HCPCS: 12001; 99212; G0463

== ENCOUNTER 2024-03-30 10:51 | Emergency (ER) | payer OTHER, SELFPAY ==
[2024-03-30 10:56] VITALS: BP 128/77; PULSE 93; RESP 14; TEMP 37.1; O2SAT 100
--- NOTE | 2024-03-30 11:11 | ED.EAR ---
HPI - Ear Problem General Chief complaint: Ear Stated complaint: right ear History of Present Illness HPI Narrative: Patient presents with right ear pain. Patient states her some clear drainage from the ear. Patient states she just finished Amoxil for ear infection with minimal relief. No fever no cough some nasal congestion. Related Data Home Medications Medication Instructions Recorded Confirmed aripiprazole 5 mg tablet 5 mg PO QHS 03/30/24 03/30/24 buspirone 10 mg tablet 10 mg PO BID 03/30/24 03/30/24 escitalopram oxalate 10 mg tablet 10 mg PO DAILY 03/30/24 03/30/24 Allergies Allergy/AdvReac Type Severity Reaction Status Date / Time No Known Allergies Allergy Unknown Verified 03/30/24 10:56 Review of Systems Review of Systems: CONSTITUTIONAL: Denies chills, or sweats. Reports fever and generalized body aches EYES: Denies visual changes, redness, or discharge. ENT: Denies otalgia. Reports nasal congestion runny nose and sore throat CARDIOVASCULAR: Denies chest pain, palpitations, or edema. RESPIRATORY: Denies dyspnea. Reports occasional cough GASTROINTESTINAL: Denies abdominal pain, nausea, vomiting, or diarrhea. GENITOURINARY: Denies dysuria or hematuria. SKIN: Denies rash or itching. MUSCULOSKELETAL: Denies back pain, joint pain, or myalgia. Reports generalized body aches NEUROLOGIC: Denies headache, numbness, or weakness. PSYCHIATRIC: Denies anxiety or depression. [facility] Past Medical History Medical History Abnormal glucose tolerance in Anxiety and depression rx meds Bipolar disorder Diarrhea Encounter for female sterilization procedure Initiation of Depo Provera Initiation of Depo Provera Nausea and vomiting during No active medical problems Suppression of menstruation Surveillance for Depo-Provera contraception Surgical History Surgical History Delivery by section (03/15/22) rpt c/s twins H/O bilateral salpingectomy (03/13/23) Laparoscopic bilateral salpingectomy History of appendectomy History of 02/22/01 primary c/s--breech History of intestinal surgery 2014 bowel surgery History of wisdom tooth extraction 2019 Family History Family History Mother Brain aneurysm Other No active medical problems Social History Social History Smoking status: Former smoker Tobacco type: e-cigarettes/vaping Second hand tobacco smoke exposure: No Smoking end date: 12/09/22 Alcohol intake: current Alcohol use details: one drink every couple of months Substance use: current Substance use type: marijuana Other substance usage details: Marijuana twice daily Lack of Transportation: No Lack of Food: Never True Current Housing: I Have Housing Concerned About Future Housing: No Difficulty Paying Gas/Electric Bills: No Difficulty Paying for Meds: No Currently Unemployed: No Education: High School Diploma/GED Difficulty w/ Childcare or Family Care: No Living arrangements: with family Additional living arrangements comments: boyfriend/ Engaged Occupation/Education: 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 Gender identity (if verbalized by the patient): Female Sexual Orientation (if Verbalized by the Patient): Straight or Heterosexual Spiritual care concerns: No Exam Narrative: The patient is a well-developed, well-nourished in no acute distress. SKIN: Skin is warm and dry without erythema, swelling or exudate. There is good turgor. No tenting. HEAD: Atraumatic. Normocephalic. No temporal or scalp tenderness. EYES: Moist and bright. Sclera and conjunctivae normal. No discharge. PERRLA. Extraocular motions intact. Gross visual acuity intact. EARS: Pinna i
== END 2024-03-30 11:15 | disposition home or self-care (01) ==
PROVIDERS: Emergency Provider Nurse Practitioner Family
DX: H60.91 Unspecified otitis externa, right ear (principal); Z87.891 Personal history of nicotine dependence; F41.9 Anxiety disorder, unspecified; F32.A Depression, unspecified
CPT/HCPCS: 99213; G0463

== ENCOUNTER 2024-12-25 09:52 | Emergency (ER) | payer OTHER, SELFPAY ==
--- NOTE | ~2024-12-25 | XR_ITS ---
EXAMINATION: XR knee LT 3V DATE: 12/25/2024 10:36 INDICATION: Left knee pain TECHNIQUE: Anteroposterior, 2 oblique and crosstable lateral views of the left knee were obtained COMPARISON: None. FINDINGS: Alignment is normal. No fracture. Joint spaces are normal. No joint effusion/layering lipohemarthros is. Soft tissues are unremarkable. IMPRESSION: 1. Normal left knee radiographs. Reviewed, dictated and finalized at location A.
--- OUTSIDE RECORDS SUMMARY | 2024-12-25 09:55 | XMS_ITS | Referral Summary ---
Author Organization [facility] Address [address] [place] [address] Care Team Providers Care Business Segment Manager Name Role Phone Bre Elias DO Primary Care Provider [phone] Allergies Active Allergy Reactions Criticality Noted Date Comments Propofol Nausea only Low 11/26/2023 Medications busPIRone (BUSPAR) 10 mg tablet TAKE 1 TABLET BY MOUTH TWICE DAILY FOR ANXIETY 4 Active escitalopram (LEXAPRO) 10 mg tablet TAKE 1 TABLET BY MOUTH ONCE DAILY FOR 30 DAYS FOR DEPRESSION/ANXIE TY 4 Active QUEtiapine XR (SEROquel XR) 300 mg 24 hr tablet 4 Active famotidine (PEPCID) 40 mg tablet Take 1 tablet (40 mg total) by mouth daily 90 tablet 3 4 Active dicyclomine (BENTYL) 10 mg capsule Take 1-2 pills up to 4 times daily as needed for abdominal cramping or diarrhea. Can take 10-15 minutes before eating to prevent problematic diarrhea after eating. 120 capsule 3 4 Active simethicone (GAS-X) 125 mg capsule Take one pill up to 4 times daily as needed for problematic cramping, bloating, gas, or nausea issues. 120 capsule 3 4 Active Active Problems Problem Noted Date Diagnosed Date Chronic abdominal pain 11/26/2023 Melena 11/26/2023 Nausea and vomiting 11/26/2023 History of small bowel obstruction 11/26/2023 Gastroesophageal reflux disease without esophagi tis 11/26/2023 Chronic diarrhea 11/26/2023 Social History Tobacco Use Types Packs/Day Years Used Date Smoking Tobacco: Every Day Vaping Smokeless Tobacco: Never Tobacco Cessation:Ready to Q uit: Not Asked; Counseling Given: Not Answered AUDIT-C Answer Date Recorded Q1: How often do you have a drink containing alc ohol? Never 11/26/2023 Average Number of Drinks Not on file 024 Frequency of Binge Drinking Not on file 11/09 Personal Safety Answer Date Recorded Have you ever been in or are you currently in a harmful physical or emotional relationship or is someone making you feel afraid or unsafe? Denies 01/09/2024 Comments No Sex and Gender Information Value Date Recorded Sex Assigned at Not on file Legal Sex Female 8:54 PM [employer] Gender Identity Not on file Sexual Orientation Not on file Last Filed Vital Signs Vital Sign Reading Time Taken Comments Blood Pressure 104/62 01/09/2024 3:25 PM CDT Pulse 72 01/09/2024 3:25 PM CDT Temperature 36.7 C (98 F) 01/09/2024 11:47 AM CDT Respiratory Rate 15 01/09/2024 3:25 PM CDT Oxygen Saturation 99% 01/09/2024 3:25 PM CDT Inhaled Oxygen Concentration - - Weight 49 kg (108 lb) 01/09/2024 11:47 AM CDT Height 154.9 cm (5' 1 ) 01/09/2024 11:47 AM CDT Body Mass Index 20.41 01/09/2024 11:47 AM CDT Plan of Treatment Not on file Insurance [facility] Advance Directives For more information, please contact: [phone] * Full Code (Latest Code Status on File) Date Activated Date Inactivated Comments 01/09/2024 11:41 AM 01/09/2024 7:44 PM * Full Code Date Activated Date Inactivated Comments 01/09/2024 11:41 AM 01/09/2024 11:41 AM Care Teams Business Segment Manager Relationship Specialty Start Date End Date Bre Elias DO PCP - General Family Medicine 02/28/23
--- OUTSIDE RECORDS SUMMARY | 2024-12-25 09:55 | XMS_ITS | Clinical Summary ---
Author Organization [facility] Address [address] [place] [address] Care Team Providers Care Saw Edge Fuser Circular Name Role Phone Unavailable Primary Care Provider Unavailabl e Source Comments [facility],non-owned Affiliates and Associated Physician Practices is amultiple site organization consisting of ambulatory clinics and hospital sitesin [place], [place], [place] and [place]. This disclosure is being madepursuant to the Care Everywhere program and may not contain all information available regarding this patient. 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 Gender Identity Not on file Sexual Orientation Not on file Plan of Treatment Health Maintenance Due Date Last Done Comments PAP SMEAR 1997 HIV SCREENING 2012 HEPATITIS C SCREENING 04/17/2015 DTAP/TDAP/TD VACCINES (1 - Tdap) 2016 HEPATITIS B VACCINE (1 of 3 - 19+ 3-dose series) 2016 COVID-19 VACCINE (1 - 2023-2 5 season) 2024 DEPRESSION SCREENING 08/11/2024 INFLUENZA VACCINE (Season Ended) 2025 08/16/2020, 05/28/2013 ZOSTER VACCINE (1 of 2) 2047 HIB VACCINE Aged Out No longer eligi ble based on patient's age to complete this topic HPV VACCINE Aged Out No longer eligi ble based on patient's age to complete this topic MENINGOCOCCAL (Group B) VACCINE SHARED DECISION-MAKING Aged Out No longer eligible based on patient's age to complete this topic MENINGOCOCCAL GROUPS A/C/Y/W VACCINE Aged Out No longer eligible b ased on patient's age to complete this topic PNEUMOCOCCAL VACCINE Aged Out No long er eligible based on patient's age to complete this topic Insurance MEDICAID - [place] [facility] [place], [place] [id number] [place] [address] [place] [address] [facility]
--- OUTSIDE RECORDS SUMMARY | 2024-12-25 09:55 | XMS_ITS | Clinical Summary ---
Author Organization [facility] Address [address] [place] [address] Care Team Providers Care Horticultural Specialty Grower Field Name Role Phone Bre Elias DO Primary Care Provider [phone] Allergies Active Allergy Reactions Criticality Noted Date [...] without esophagi tis 11/26/2023 Chronic diarrhea 11/26/2023 Surgical History Surgery Date Site/Laterality Comments ABDOMINAL SURGERY COLONOSCOPY 01/09/2024 Medical History Medical History Date Comments Bowel obstruction (HCC) Family History Medical History Relation Name Comments Cancer Father Colon polyps Father Cancer Maternal Grandmother Cancer Mother Cancer Paternal Grandmother Stomach cancer Paternal Grandmother Relation Name Status Comments Father Maternal Grandmother Mother Paternal Grandmother Social History Tobacco Use Types Packs/Day Years [...] on file 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 Gender Identity Not on file Sexual Orientation Not on file Obstetrics History Last Filed Vital Signs Vital Sign Reading [...] 01/09/2024 11:47 AM CDT Plan of Treatment Health Maintenance Due Date Last Done Comments Cervical Cancer Screening 1997 Depression Screening 1997 Hepatitis C Screening 1997 HPV Vaccines (2 - 3-dose series) 06/25/2013 05/28/20 13 Regular Well Visit/Exam 18-64 2015 Pneumococcal vaccine <65 (1 of 2 - PCV) 2016 DTaP/Tdap/Td Vaccine (7 - Td or Tdap) 05/28/2023 05/28/2013, 04/13/2003, 04/13/2003, Additional history exists Influenza Vaccine (Season Ended) 2025 08/16/19 21, 05/28/2013 Hepatitis B Screening Completed 05/24/1998 , 1997, 1997 Varicella Vaccines Completed 05/28/2013, 04/13/[address] [place] [address] [place] [address] Advance Directives For more information, please contact: [phone] * Full Code (Latest Code Status on File) Date Activated Date Inactivated Comments 01/09/2024 11:41 AM 01/09/2024 7:44 PM * Full Code Date Activated Date Inactivated Comments 01/09/2024 11:41 AM 01/09/2024 11:41 AM Care Teams Horticultural Specialty Grower Field Relationship Specialty Start Date End Date Bre Elias DO PCP - General Family Medicine 02/28/23
--- OUTSIDE RECORDS SUMMARY | 2024-12-25 09:55 | XMS_ITS | Clinical Summary ---
Author Organization [facility] Address [address] [place] [address] Phone Care Team Providers Care Molecular Biology Scientist Name Role Phone Bre Munoz DO Primary Care Provider [phone] Ashwin Watson MD Unavailable [phone] Allergies No known active allergies Medications QUEtiapine (SEROquel) 25 MG Tablet Take 25 mg by mouth nightly. Active sertraline (ZOLOFT) 100 MG Tablet Take 100 mg by mouth daily. Active SUMAtriptan (IMITREX) 25 MG Tablet Take 1 Tablet by mouth once as needed for Migraine for up to 18 doses. Use as directed. May repeat dose in 2 hours if headache recurs. 9 Tablet 1 05/26/2023 Active HYDROcodone-edilberto taminophen (NORCO) 5-325 MG TabletIndicatio ns:Dental decay Take 1 Tablet by mouth every 6 hours as needed for Mild or more severe pain. 20 Tablet 03/17/2024 Active Family History Medical History Relation Name Comments Bipolar Disorder Father Hypertension Father Prostate Cancer Father Alcohol Abuse Mother Bipolar Disorder Mother Migraines Mother Other-comment Mother brain aneurysm Breast Cancer Paternal Grandmother Relation Name Status Comments Father Mother Paternal Grandmother Social History Tobacco Use Types Packs/Day Years Used Date Smoking Tobacco: Every Day Cigarettes Smokeless Tobacco: Never Alcohol Use Standard Drinks/Week Comments Never 0 (1 standard drink = 0.6 oz pur e alcohol) Comments No Sex and Gender Information Value Date Recorded Sex Assigned at Female 04/27/2023 3:20 AM CDT Legal Sex Female 12:07 AM CDT Gender Identity Female 04/27/2023 3:20 AM CDT Sexual Orientation Not on file Last Filed Vital Signs Vital Sign Reading Time Taken Comments Blood Pressure 113/68 03/28/2024 10:38 PM CDT Pulse 81 03/28/2024 10:38 PM CDT Temperature 36.4 C (97.6 F) 03/28/2024 10:38 PM CDT Respiratory Rate 16 03/28/2024 10:38 PM CDT Oxygen Saturation 100% 03/28/2024 10:38 PM CDT Inhaled Oxygen Concentration - - Weight 49.9 kg (110 lb) 03/28/2024 10:38 PM CDT Height 154.9 cm (5' 1 ) 03/28/2024 10:38 PM CDT Body Mass Index 20.78 03/28/2024 10:38 PM CDT Plan of Treatment Health Maintenance Due Date Last Done Comments Hepatitis C Virus (HCV) Screening 1997 Hepatitis B Immunization (2 of 3 - 3-dose series) 1997 1997 Pneumococcal Immunization Combined (1 of 2 - PCV) 2016 Pap Smear 2018 Influenza Immunization (#1) 2024 01/0 01/2021, 05/28/2013 SARS-COV-2 Immunization ( - season) 2024 Respiratory Syncytial Virus (RSV) Immunization (Adult) (1 - 1-dose 75+ series) 2072 DTaP/Tdap/Td Immunization Discontinued 2012, 04/13/2003, 01/22/1999 Human Papillomavirus (HPV) Immunization Discontinued 05/28/2013 Meningococcal Immunization (ACWY) Completed 05/28/2013 TdaP Immunization Completed 05/28/2013 Rotavirus Immunization Aged Out No lo nger eligible based on patient's age to [place] [id number] MEDICAID [facility] Care Teams Molecular Biology Scientist Relationship Specialty Start Date End Date Bre Munoz DO [address] [place] [address] PCP - General Family Medicine 04/27/23 Ashwin Watson MD [address] [facility] [place] [address] Consulting Physician Neurology 05/22/23
[2024-12-25 10:00] VITALS: BP 152/85; PULSE 94; RESP 16; TEMP 36.8; O2SAT 100
--- NOTE | 2024-12-25 10:21 | ED_ITS ---
HPI - General Adult General Chief complaint: Extremity Problem,Nontraumatic Stated complaint: left knee pain Source: patient Mode of arrival: ambulatory Limitations: no limitations History of Present Illness HPI narrative: Patient presents for evaluation of left knee pain. She indicates her symptoms have been present for about 1 month. She twisted her knee around that time and has noted fairly constant pain since that time. she rates her pain currently is 3/10 in severity. Pain radiates proximally. She tried taking Tylenol and ibuprofen for symptoms. The provide minimal relief. She denies loss of range of motion but movement makes her symptoms worse. Related Data Home Medications Medication Instructions Recorded Confirmed Last Taken Type No Home Medications 12/25/24 Unknown History Allergies Allergy/AdvReac Type Severity Reaction Status Date / Time No Known Allergies Allergy Unknown Verified 12/25/24 10:04 Review of Systems Review of Systems: CONSTITUTIONAL: Denies fever, chills, or sweats. EYES: Denies visual changes, redness, or discharge. ENT: Denies rhinorrhea, congestion, sore throat, or otalgia. CARDIOVASCULAR: Denies chest pain, palpitations, or edema. RESPIRATORY: Denies cough or dyspnea. GASTROINTESTINAL: Denies abdominal pain, nausea, vomiting, or diarrhea. GENITOURINARY: Denies dysuria or hematuria. SKIN: Denies rash or itching. MUSCULOSKELETAL: Reports left knee pain. NEUROLOGIC: Denies headache, numbness, dizziness, or weakness. PSYCHIATRIC: Denies anxiety or depression. [facility] Past Medical History Medical History Bipolar disorder Surveillance for Depo-Provera contraception Initiation of Depo Provera Initiation of Depo Provera Encounter for female sterilization procedure Diarrhea Abnormal glucose tolerance in Anxiety and depression rx meds Suppression of menstruation Nausea and vomiting during No active medical problems Surgical History Surgical History H/O colonoscopy (~05/2024) H/O bilateral salpingectomy (03/13/23) Laparoscopic bilateral salpingectomy History of appendectomy Delivery by section (03/15/22) rpt c/s twins History of intestinal surgery 2013 bowel surgery History of 02/22/01 primary c/s--breech History of wisdom tooth extraction 2020 Family History Family History Mother Brain aneurysm Other No active medical problems Social History Social History Smoking status: Former smoker Tobacco type: e-cigarettes/vaping Second hand tobacco smoke exposure: No Smoking end date: 12/09/22 Alcohol intake: never Alcohol use details: one drink every couple of months Substance use: current Substance use type: marijuana Other substance usage details: Marijuana twice daily Do You Feel Safe in your Home?: Yes Lack of Transportation: No Lack of Food: Never True Current Housing: I Have Housing Concerned About Future Housing: No Difficulty Paying Gas/Electric Bills: No Difficulty Paying for Meds: No Currently Unemployed: No Education: High School Diploma/GED Difficulty w/ Childcare or Family Care: No Living arrangements: with family Additional living arrangements comments: boyfriend/ Engaged Occupation/Education: 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 Gender identity (if verbalized by the patient): Female Sexual Orientation (if Verbalized by the Patient): Straight or Heterosexual Spiritual care concerns: No Exam Narrative: GENERAL: Well-appearing, well-nourished, and in no acute distress. HEAD: Normocephalic, atraumatic. EYES: PERRLA and EOMI. ENT: Nares clear, no rhinorrhea or epistaxis. Mucous membranes moist. Oropharynx without tonsillar hypertrophy exudate or other lesions. Bilateral TMs pearly jones nonbulging NECK: Supple. No adenopathy or masses. No carotid bruits or JVD CHEST: Clear to auscultation. No respiratory distress. No wheezes rales or rhonchi HEART: Regular rate and rhythm. No murmur heard. Normal peripheral pulses. ABDOMEN: Soft, nontender, nondistended, normal active bowel sounds. EXTREMITIES: Mild tenderness in the anterior aspect of the left knee. No crepitus or deformity. Full range of motion intact. No swelling noted SKIN: Warm, dry, no rash. NEURO: No focal deficits. Alert and oriented x3. PSYCH: Normal mood and affect. Course Course Emergency Course: This is a 29 year old female who presented for evaluation of left knee pain. x- ray negative for fracture. Exam consistent with strain. She ready has a knee sleeve at home. Advised to use [id number] Voltaren. She was advised to follow up with ortho to determine whether additional testing such as MRI is warranted. Follow-up with primary care provider for other issues. Go to the emergency department for intractable pain. Patient in agreement with plan care Level of Care: Express Care Visit Vital Signs Vital signs: Vital Signs Temperature 36.8 C 12/25/24 10:00 Pulse Rate 94 12/25/24 10:00 Respiratory Rate 16 12/25/24 10:00 Blood Pressure 152/85 H 12/25/24 10:00 Pulse Oximetry 100 12/25/24 10:00 Oxygen Delivery Room Air 12/25/24 10:00 Temperature 36.8 C 12/25/24 10:00 Pulse Rate 94 12/25/24 10:00 Respiratory Rate 16 12/25/24 10:00 Blood Pressure 152/85 H 12/25/24 10:00 Pulse Oximetry 100 12/25/24 10:00 Oxygen Delivery Room Air 12/25/24 10:00 Medical Decision Making Vital Signs Vital Signs: Vital Signs Temperature 36.8 C 12/25/24 10:00 Pulse Rate 94 12/25/24 10:00 Respiratory Rate 16 12/25/24 10:00 Blood Pressure 152/85 H 12/25/24 10:00 Pulse Oximetry 100 12/25/24 10:00 Oxygen Delivery Room Air 12/25/24 10:00 Temperature 36.8 C 12/25/24 10:00 Pulse Rate 94 12/25/24 10:00 Respiratory Rate 16 12/25/24 10:00 Blood Pressure 152/85 H 12/25/24 10:00 Pulse Oximetry 100 12/25/24 10:00 Oxygen Delivery Room Air 12/25/24 10:00 Imaging Data Radiologist's impression: EXAMINATION: XR knee LT 3V DATE: 12/25/2024 10:36 INDICATION: Left knee pain TECHNIQUE: Anteroposterior, 2 oblique and crosstable lateral views of the left knee were obtained COMPARISON: None. FINDINGS: Alignment is normal. No fracture. Joint spaces are normal. No joint effus ion/layering lipohemarthrosis. Soft tissues are unremarkable. IMPRESSION: 1. Normal left knee radiographs. Discharge Plan Discharge Clinical Impression: Muscle strain of left knee Patient Disposition: Home Condition: Stable Instructions: Antibiotic Form, Knee Pain (ED) Additional Instructions: VOLTAREN(DICLOFENAC) GEL SHOULD HELP WITH YOUR PAIN. THIS IS SOLD OVER THE COUNTER WEAR YOUR KNEE SLEEVE TRY TO KEEP YOUR LEG ELEVATED WHEN NOT WALKING PLEASE CALL ORTHOPEDICS FOR AN APPOINTMENT Patient Language: Occitan Prescriptions: No Action No Home Medications Follow-up/Referrals: Davy Allen MD [Physician] - Time of Disposition: 11:06
== END 2024-12-25 11:10 | disposition home or self-care (01) ==
PROVIDERS: Emergency Provider Nurse Practitioner
DX: S86.912A Strain of unspecified muscle(s) and tendon(s) at lower leg level, left leg, initial encounter (principal); X50.9XXA Other and unspecified overexertion or strenuous movements or postures, initial encounter; F12.90 Cannabis use, unspecified, uncomplicated; Z87.891 Personal history of nicotine dependence
CPT/HCPCS: 73562; 99213; G0463